=== PATIENT | male | born 1955 | race Caucasian/White ===

== ENCOUNTER 2016-09-27 12:20 | Emergency (ER) | payer MEDICAID ==
[~2016-09-27] VITALS: Ht 170.2 cm; Wt 105.5 kg
[2016-09-27 12:22] VITALS: BP 180/79; PULSE 66; RESP 14; TEMP 98.1; O2SAT 97
--- NOTE | 2016-09-27 12:42 | PD ---
HPI Chief Complaint: Medication Refill Request Time Seen by Provider: 12:41 Travel History International Travel<30 days: No Contact w/Intl Traveler<30days: No Traveled to known affect area: No History of Present Illness HPI 61-year-old male presented to the emergency department with history of type 2 diabetes treated with insulin, hypertension, history of atrial fibrillation, hypertension and CHF. Patient recently moved here from [place] and has been unable to establish with a local primary care physician, and has having difficulty getting his medications. Patient is also due for a PT/INR for his warfarin dosing. He has no acute medical problems this time. No known drug allergies. PFSH Past Medical History Hx Anticoagulant Therapy: Yes Heart Rhythm Problems: Yes Cardiovascular Problems: Yes Congestive Heart Failure: Yes Diabetes: Yes Social History Alcohol Use: No Tobacco Use: No Substance Use: No Allergies-Medications (Allergen,Severity, Reaction): Coded Allergies: No Known Allergies (Unverified , 09/27/16) Reported Meds & Prescriptions Reported Meds & Active Scripts Active Losartan (Losartan Potassium) 25 Mg Tab 25 Mg PO DAILY Furosemide 40 Mg Tab 40 Mg PO BID Sotalol (Sotalol HCl) 80 Mg Tab 80 Mg PO BID Crestor (Rosuvastatin Calcium) 20 Mg Tab 20 Mg PO DAILY Warfarin 1 Mg Tab 2 Mg PO DAILY Warfarin 5 Mg Tab 5 Mg PO DAILY Novolog Mix 70-30 Inj (Insulin Aspart Prota 70%/Aspart 30%) 1,000 Unit/10 Ml Vial 15 Units SQ BID 30 Days Levemir Inj (Insulin Detemir) 1,000 unit/ 10 ML Vial 30 Units SQ BID 30 Days Do not mix with any other Insulin. Review of Systems General / Constitutional: No: Fever Eyes: No: Visual changes HENT: No: Headaches Cardiovascular: No: Chest Pain or Discomfort Respiratory: No: Shortness of Breath Gastrointestinal: No: Abdominal Pain Genitourinary: No: Dysuria Musculoskeletal: No: Pain Skin: No Rash Neurologic: No: Weakness Psychiatric: No: Depression Endocrine: No: Polydipsia Hematologic/Lymphatic: No: Easy Bruising Physical Exam Narrative GENERAL: Patient is in no acute distress SKIN: Warm and dry. Normal color. Normal turgor. HEAD: Atraumatic. Normocephalic. EYES: Pupils equal and round. No scleral icterus. No injection or drainage. ENT: No nasal bleeding or discharge. Mucous membranes pink and moist. Pharynx is clear. Airway is patent. NECK: Trachea midline. No JVD. CARDIOVASCULAR: Irregular rate and rhythm. RESPIRATORY: No accessory muscle use. Clear to auscultation. Breath sounds equal bilaterally. GASTROINTESTINAL: Abdomen soft, non-tender, nondistended. Hepatic and splenic margins not palpable. MUSCULOSKELETAL: Extremities without clubbing, cyanosis, or edema. No obvious deformities. NEUROLOGICAL: Awake and alert. No obvious cranial nerve deficits. Motor grossly within normal limits. Five out of 5 muscle strength in the arms and legs. Normal speech. PSYCHIATRIC: Appropriate mood and affect; insight and judgment normal. Data Data Last Documented VS Vital Signs Date Time Temp Pulse Resp B/P Pulse Ox O2 Delivery O2 Flow Rate FiO2 09/27/16 12:22 98.1 66 14 180/79 97 Room Air Orders Prothrombin Time / Inr (Pt) (09/27/16 12:40) Labs Laboratory Tests Test 09/27/16 13:05 Prothrombin Time 36.8 SEC Prothromb Time International 3.2 RATIO Ratio MDM Medical Decision Making Medical Screen Exam Complete: Yes Emergency Medical Condition: Yes Differential Diagnosis H or fibrillation. Anticoagulant therapy. CHF. Type 2 diabetes requiring insulin. Hypertension. Narrative Course Patient is medically stable at time of exam. All meds are refilled 1 month with one refill each. Patient is to establish with local primary care provider for any further medication refills. INR checked and shows INR of 3.2 No change recommended in Warfarin dose at this time. Diagnosis Primary Impression: Diabetes 1.5, managed as type 1 Additional Impressions: CHF (congestive heart failure) Qualified Code: I50.9 - Chronic congestive heart failure, unspecified congestive heart failure type Anticoagulation goal of INR 2 to 3 Referrals: Primary Care Physician Patient Instructions: General Instructions Med/Other Pt SpecificInfo: Prescription(s) given Scripts Losartan 25 Mg Tab25 Mg PO DAILY #30 TAB Ref 1 Prov:Hernandez Berger MD 09/27/16 Furosemide 40 Mg Tab40 Mg PO BID #60 TAB Ref 0 Prov:Hernandez Berger MD 09/27/16 Sotalol 80 Mg Tab80 Mg PO BID #60 TAB Ref 1 Prov:Hernandez Berger MD 09/27/16 Rosuvastatin (Crestor)20 Mg Tab20 Mg PO DAILY #30 TAB Ref 1 Prov:Hernandez Berger MD 09/27/16 Warfarin 1 Mg Tab2 Mg PO DAILY #60 TAB Ref 1 Prov:Hernandez eBrger MD 09/27/16 Warfarin 5 Mg Tab5 Mg PO DAILY #30 TAB Ref 1 Prov:Hernandez Berger MD 09/27/16 Insulin Aspart Protam-Asp 70-30 Inj (Novolog Mix 70-30 Inj)1,000 Unit/10 Ml Vial15 Units SQ BID 30 Days Ref 1 Prov:Hernandez Berger MD 09/27/16 Insulin Detemir Inj (Levemir Inj)1,000 unit/ 10 ML Vial30 Units SQ BID 30 Days Ref 1 Do not mix with any other Insulin. Prov:Hernandez Berger MD 09/27/16 Disposition: 01 DISCHARGE HOME Condition: Stable Manny Olvera Sep 27, 2016 12:42
[2016-09-27] MEDS ORDERED: FURO40TA PO (12:47)
[2016-09-27] MEDS ORDERED: SOTA80TA PO (12:47)
[2016-09-27] MEDS ORDERED: NOVOLOGMXP SQ (12:47)
[2016-09-27] MEDS ORDERED: LOSA25TA PO (12:47)
[2016-09-27] MEDS ORDERED: WARF-23 PO (12:47)
[2016-09-27] MEDS ORDERED: WARF4TAB52 PO (12:47)
[2016-09-27] MEDS ORDERED: ROSU20 PO (12:47)
[2016-09-27] MEDS ORDERED: LEVEMIR SQ (12:47)
[2016-09-27 13:27] LABS: INTERNATIONAL NORMALIZED RATIO 3.2 RATIO; PROTHROMBIN TIME - PATIENT 36.8 SEC (9.8-11.6)
[2016-09-29] MEDS ORDERED: INSU1INJ5 SQ (11:15)
[2016-09-29] MEDS ORDERED: NOVOINJ2 SQ (11:15)
== END 2016-09-27 14:02 | disposition home or self-care (01) ==
LOC: NEPB 12:20
DX: I48.91 Unspecified atrial fibrillation (principal); I10 Essential (primary) hypertension; E11.9 Type 2 diabetes mellitus without complications; Z79.01 Long term (current) use of anticoagulants; I50.9 Heart failure, unspecified
CPT/HCPCS: 85610; 99282

== ENCOUNTER 2016-11-04 23:51 | Emergency (ER) | payer MEDICAID ==
[~2016-11-04] VITALS: Ht 17.8 cm; Wt 110.0 kg
[~2016-11-04 23:51] MED LIST: FURO40TA PO; INSU1INJ5 SQ; LEVEMIR SQ; LOSA25TA PO; NOVOINJ2 SQ; NOVOLOGMXP SQ; ROSU20 PO; SOTA80TA PO; WARF-23 PO; WARF4TAB52 PO
[2016-11-04 23:53] VITALS: BP 177/79; PULSE 89; RESP 24; TEMP 98.8; O2SAT 98
[2016-11-05 00:18] VITALS: BP 147/67; PULSE 92; RESP 18; O2SAT 97
[2016-11-05] MEDS ORDERED: WARF-60 PO (00:28)
[2016-11-05 00:52] LABS: MEAN CORPUSCULAR HGB CONC 36.2 % (32.0-36.0)
--- NOTE | 2016-11-05 01:01 | PD ---
HPI Chief Complaint: Cold / Flu Symptoms Time Seen by Provider: 00:16 Travel History International Travel<30 days: No Contact w/Intl Traveler<30days: No Traveled to known affect area: No History of Present Illness HPI The patient is a 61 year old male who presents to the [facility] emergency department with a history of shortness of breath and cough that he reports began 3 weeks ago when he swallowed some food wrong. The patient reports that he's had a cough that is productive intermittently of clear sputum. He reports that he's had increased lower extremity edema for the last 3 weeks. The patient reports having a prior history of congestive heart failure, however he has not had this recently. He denies having any calf pain or erythema. He denies having any prior history of DVT or PE. The patient is chronically anticoagulated related to a prior ischemic stroke and atrial fibrillation. The patient reports that he moved to the area 5-6 months ago, however he has not established with a primary care physician. The patient denies having any chest pain. The patient reports that his shortness of breath is worse with lying flat. The patient denies recent fevers neck pain, abdominal pain, vomiting, diarrhea, urinary symptoms, or new neurologic symptoms. PFSH Past Medical History Narrative Medical The patient's past medical history is significant for atrial fibrillation status post ablation 2, history of an ischemic stroke approximate 6 years ago with residual right foot drop and speech problems with mood lability, history of congestive heart failure, history of diabetes mellitus, hypertension, hyperlipidemia, chronic back pain. Hx Anticoagulant Therapy: Yes Heart Rhythm Problems: Yes (HX AFIB) Cardiovascular Problems: Yes Congestive Heart Failure: Yes Cerebrovascular Accident: Yes Diabetes: Yes Patient Takes Glucophage: No Diminished Hearing: No Hypertension: Yes Tetanus Vaccination: < 5 Years Influenza Vaccination: No Past Surgical History Narrative Surgical The patient's past surgical history is significant for an appendectomy, cardiac ablation 2, cardiac catheterization with 5 stents placed previously. Appendectomy: Yes Coronary Artery Bypass Graft: Yes (STENTS X5) Other Surgery: Yes (A-FIB ABLATION) Social History Alcohol Use: No Tobacco Use: No Substance Use: No Allergies-Medications (Allergen,Severity, Reaction): Coded Allergies: No Known Allergies (Unverified , 11/05/16) Reported Meds & Prescriptions Reported Meds & Active Scripts Active Benzonatate 200 Mg Cap 200 Mg PO TID PRN Augmentin (Amoxicillin-Clavulanate) 875-125 mg Tab 875 Mg PO BID 10 Days not for use in CrCl <30 ml/min. Losartan (Losartan Potassium) 25 Mg Tab 25 Mg PO DAILY Furosemide 40 Mg Tab 40 Mg PO BID Sotalol (Sotalol HCl) 80 Mg Tab 80 Mg PO BID Crestor (Rosuvastatin Calcium) 20 Mg Tab 20 Mg PO DAILY Novolog Mix 70-30 Inj (Insulin Aspart Prota 70%/Aspart 30%) 1,000 Unit/10 Ml Vial 15 Units SQ BID 30 Days Levemir Inj (Insulin Detemir) 1,000 unit/ 10 ML Vial 30 Units SQ BID 30 Days Do not mix with any other Insulin. Reported Warfarin 6 Mg Tab 6 Mg PO DAILY Review of Systems General / Constitutional: No: Fever Eyes: No: Visual changes HENT: No: Headaches, Rhinorrhea, Congestion Cardiovascular: Positive: Dyspnea on exertion, Edema, No: Chest Pain or Discomfort Respiratory: Positive: Cough, Shortness of Breath, Orthopnea Gastrointestinal: No: Nausea, Vomiting, Diarrhea, Abdominal Pain Genitourinary: No: Dysuria Musculoskeletal: No: Pain Skin: No Rash Neurologic: No: Weakness Psychiatric: No: Depression Endocrine: No: Polydipsia Hematologic/Lymphatic: No: Easy Bruising Physical Exam Narrative General: The patient is a well-developed well-nourished male in no acute distress. Head and Neck exam: Head is normocephalic atraumatic. Eyes: EOMI, pupils are equal round and reactive to light. Nose: Midline septum with pink mucous membranes Mouth: Dentition unremarkable. Moist mucus membranes. Posterior oropharynx is not erythematous. No tonsillar hypertrophy. Uvula midline. Airway patent. Neck: No palpable lymphadenopathy. No nuchal rigidity. No thyromegaly. Cardiovascular: Regular rate and rhythm without murmurs, gallops, or rubs. Lungs: The patient has crackles audible in bilateral lung bases with a recurrent cough that is dry in character on examination. No conversational dyspnea. No wheezes are audible, no rhonchi audible. No paroxysmal abdominal breathing. No tripoding. Abdomen: Soft, without tenderness to palpation in all 4 quadrants of the abdomen. No guarding, rebound, or rigidity. Normal bowel sounds are audible. No tenderness on palpation of McBurney's point. Extremities: No clubbing or cyanosis. The patient has trace to 1+ pitting edema bilateral lower extremities. 2+ pulses in all 4 extremities. No calf tenderness on palpation. Back: No spinous process tenderness to palpation. No costovertebral angle tenderness to palpation. Neurologic Exam: Grossly nonfocal. Skin Exam: No rash noted. Intact skin that is warm and dry. Data Data Last Documented VS Vital Signs Date Time Temp Pulse Resp B/P Pulse Ox O2 Delivery O2 Flow Rate FiO2 11/05/16 04:10 98.5 78 18 163/72 97 11/05/16 01:26 Room Air Orders Chest, Single Ap (11/05/16 00:43) Complete Blood Count With Diff (11/05/16 00:48) Comprehensive Metabolic Panel (11/05/16 00:48) Creatine Kinase (Cpk) (11/05/16 00:48) Ckmb (Isoenzyme) Profile (11/05/16 00:48) B-Type Natriuretic Peptide (11/05/16 00:48) Prothrombin Time / Inr (Pt) (11/05/16 00:48) Act Partial Throm Time (Ptt) (11/05/16 00:48) Blood Culture (11/05/16 00:48) C-Reactive Protein (Crp) (11/05/16 00:48) Lipase (11/05/16 00:48) Urinalysis - C+S If Indicated (11/05/16 00:48) Magnesium (Mg) (11/05/16 00:48) Iv Access Insert/Monitor (11/05/16 00:48) Ecg Monitoring (11/05/16 00:48) Oximetry (11/05/16 00:48) CKMB (11/05/16 01:20) CKMB% (11/05/16 01:20) Electrocardiogram (11/05/16 ) Labs Laboratory Tests Test 11/05/16 01:20 White Blood Count 7.5 TH/MM3 Red Blood Count 3.26 MIL/MM3 Hemoglobin 10.7 GM/DL Hematocrit 29.4 % Mean Corpuscular Volume 90.1 FL Mean Corpuscular Hemoglobin 32.6 PG Mean Corpuscular Hemoglobin 36.2 % Concent Red Cell Distribution Width 14.1 % Platelet Count 167 TH/MM3 Mean Platelet Volume 9.8 FL Neutrophils (%) (Auto) 62.2 % Lymphocytes (%) (Auto) 22.3 % Monocytes (%) (Auto) 12.3 % Eosinophils (%) (Auto) 1.7 % Basophils (%) (Auto) 1.5 % Neutrophils # (Auto) 4.6 TH/MM3 Lymphocytes # (Auto) 1.7 TH/MM3 Monocytes # (Auto) 0.9 TH/MM3 Eosinophils # (Auto) 0.1 TH/MM3 Basophils # (Auto) 0.1 TH/MM3 CBC Comment AUTO DIFF Differential Comment AUTO DIFF CONFIRMED Platelet Estimate NORMAL Platelet Morphology Comment NORMAL Ovalocytes 2+ Prothrombin Time 19.5 SEC Prothromb Time International 1.7 RATIO Ratio Activated Partial 31.1 SEC Thromboplast Time Urine Color LIGHT-YELLOW Urine Turbidity CLEAR Urine pH 5.5 Urine Specific Burns 1.010 Urine Protein 100 mg/dL Urine Glucose (UA) 300 mg/dL Urine Ketones NEG mg/dL Urine Occult Blood TRACE Urine Nitrite NEG Urine Bilirubin NEG Urine Urobilinogen LESS THAN 2.0 MG/DL Urine Leukocyte Esterase NEG Urine RBC 2 /hpf Urine WBC LESS THAN 1 /hpf Urine Bacteria RARE /hpf Urine Hyaline Casts 4 /lpf Urine Mucus FEW /lpf Microscopic Urinalysis Comment CULT NOT INDICATED Sodium Level 139 MEQ/L Potassium Level 4.2 MEQ/L Chloride Level 103 MEQ/L Carbon Dioxide Level 24.7 MEQ/L Anion Gap 11 MEQ/L Blood Urea Nitrogen 40 MG/DL Creatinine 1.93 MG/DL Estimat Glomerular Filtration 35 ML/MIN Rate Random Glucose 256 MG/DL Calcium Level 8.8 MG/DL Magnesium Level 1.9 MG/DL Total Bilirubin 0.6 MG/DL Aspartate Amino Transf 21 U/L (AST/SGOT) Alanine Aminotransferase 33 U/L (ALT/SGPT) Alkaline Phosphatase 102 U/L Total Creatine Kinase 173 U/L Creatine Kinase MB 3.3 NG/ML C-Reactive Protein 1.43 MG/DL B-Type Natriuretic Peptide 330 PG/ML Total Protein 7.2 GM/DL Albumin 3.4 GM/DL Lipase 200 U/L [facility] Medical Decision Making Medical Screen Exam Complete: Yes Emergency Medical Condition: Yes Medical Record Reviewed: Yes Interpretation(s) Last Impressions Chest X-Ray 11/05/16 0043 Signed Impressions: Service Date/Time: Saturday, November 05, 2016 00:57 - CONCLUSION: Normal examination. Deshaun Heller MD Differential Diagnosis Bronchitis, versus pneumonia, versus aspiration, versus congestive heart failure exacerbation, versus acute coronary syndrome Narrative Course During the course of the patients emergency department visit, the patients history, examination, and differential diagnosis were reviewed with the patient. The patient had IV access obtained and blood work sent for analysis. The patient was placed on a lunchroom monitor with oximetry and blood pressure monitoring. The patient had an EKG done that shows a sinus rhythm with a heart rate of 75, right bundle branch block is noted, no other acute ST segment changes are noted. The patients laboratory studies were reviewed and remarkable for white count of 7.5, mild anemia noted, CPK and troponin I are unremarkable. BNP is in the 300s, however he does have a history of congestive heart failure and is on Lasix which he is taking daily. The patient's chest x-ray shows no evidence of pulmonary edema or fluid overload. CMP is remarkable for mild renal insufficiency. I suspect that the patient's persistent cough is related to bronchitis. The patient will be discharged home with a prescription for antibiotic and benzonatate to be used as needed for cough suppression. The patient was given the name of the outpatient referral doctor for follow-up as he has multiple chronic medical conditions and is in need of a local doctor. The patient is resting comfortably and feels better, is alert and in no distress. The patients results and examination findings were discussed with the patient. The repeat examination is unremarkable and benign. The history, exam, diagnostic testing, and current condition do not suggest any significant pathology to warrant further testing, continued ED treatment, admission, or surgical evaluation at this point. The vital signs have been stable. The patient does not have uncontrollable pain, intractable vomiting, or other significant symptoms. The patient's condition is stable and appropriate for discharge. The patient will pursue further outpatient evaluation with a primary care physician or other designated or consulting physician as indicated in the discharge instructions. The patient expressed understanding and was agreeable with this plan. Diagnosis Primary Impression: Cough Additional Impression: Bronchitis Referrals: Wily Travis MD 2 days Patient Instructions: Acute Bronchitis (ED), Chronic Cough (ED), General Instructions Scripts Benzonatate 200 Mg [id number] Mg PO TID PRN (COUGH) #15 CAP Ref 0 Prov:Karo Washington MD 11/05/16 Amoxicillin-Clavulanate (Augmentin)875-125 mg [id number] Mg PO BID 10 Days Ref 0 not for use in CrCl <30 ml/min. Prov:Karo Washington MD 11/05/16 Disposition: 01 DISCHARGE HOME Condition: Stable Karo Washington MD Nov 05, 2016 01:01
--- NOTE | 2016-11-05 01:13 | RADRPT ---
EXAM DATE/TIME: 11/05/2016 00:57 [facility] COMPARISON: No previous studies available for comparison. INDICATIONS : Fever, cough. MEDICAL HISTORY : Hypertension. Congestive heart failure. SURGICAL HISTORY : Coronary artery stent. ENCOUNTER: Initial ACUITY: 1 day PAIN SCORE: 0/10 LOCATION: Bilateral chest FINDINGS: A single view of the chest demonstrates the lungs to be symmetrically aerated without evidence of mas s, infiltrate or effusion. The cardiomediastinal contours are unremarkable. Osseous structures are intact. CONCLUSION: Normal examination. Deshaun Heller MD on November 05, 2016 at 1:12 Board Certified Radiologist. This report was verified electronically.
[2016-11-05 01:26] VITALS: RESP 20; O2SAT 96
[2016-11-05 01:35] LABS: AUTOMATED NEUTROPHIL # 4.6 TH/MM3 (1.8-7.7); BASOPHIL # 0.1 TH/MM3 (0-0.2); BASOPHIL % 1.5 % (0.0-2.0); EOSINOPHIL # 0.1 TH/MM3 (0-0.4); EOSINOPHIL % 1.7 % (0.0-4.0); HEMATOCRIT 29.4 % (39.0-51.0); LYMPH % 22.3 % (9.0-44.0); LYMPHOCYTE # 1.7 TH/MM3 (1.0-4.8); MEAN CELL VOLUME 90.1 FL (80.0-100.0); MEAN CORPUSCULAR HEMOGLOBIN 32.6 PG (27.0-34.0); MONO % 12.3 % (0.0-8.0); NEUT % 62.2 % (16.0-70.0); PLATELET COUNT 167 TH/MM3 (150-450); RED BLOOD COUNT 3.26 MIL/MM3 (4.50-5.90); RED CELL DISTRIBUTION WIDTH 14.1 % (11.6-17.2); WHITE BLOOD COUNT 7.5 TH/MM3 (4.0-11.0)
[2016-11-05 01:43] LABS: HEMO FLAGS AUTO DIFF
[2016-11-05 01:45] LABS: ALT (GPT) 33 U/L (12-78); ANION GAP 11 MEQ/L (5-15); AST (GOT) 21 U/L (15-37); BICARBONATE 24.7 MEQ/L (21.0-32.0); BLOOD UREA NITROGEN 40 MG/DL (7-18); CHLORIDE 103 MEQ/L (98-107); GLOMERULAR FILTRATION RATE 35 ML/MIN (>89); MAGNESIUM 1.9 MG/DL (1.5-2.5); POTASSIUM 4.2 MEQ/L (3.5-5.1); SODIUM (NA) 139 MEQ/L (136-145)
[2016-11-05 01:48] LABS: ALKALINE PHOSPHATASE 102 U/L (45-117); CREATINE KINASE 173 U/L (39-308); TOTAL BILIRUBIN ADULT 0.6 MG/DL (0.2-1.0)
[2016-11-05 01:53] LABS: APTT (PATIENT) 31.1 SEC (24.3-30.1); INTERNATIONAL NORMALIZED RATIO 1.7 RATIO; PROTHROMBIN TIME - PATIENT 19.5 SEC (9.8-11.6)
[2016-11-05 01:58] LABS: BACTERIA, URINE RARE /hpf; BLOOD, URINE TRACE (NEG); COMMENT (UR) CULT NOT INDICATED; CULTURE IF INDICATED CULT NOT INDICATED; GLUCOSE,URINE 300 mg/dL (NEG); HYALINE CAST, URINE 4 /lpf (RARE); KETONE, URINE NEG (NEG); MUCUS URINE FEW /lpf (OCC); NITRITE,URINE NEG (NEG); PH, URINE 5.5 (5.0-8.5); URINE COLOR LIGHT-YELLOW (YELLW/STRAW)
[2016-11-05 02:12] LABS: CKMB 3.3 NG/ML (0.5-3.6)
[2016-11-05 02:35] LABS: OVALOCYTES 2+ (NORMAL); PLATELET ESTIMATE SMEAR NORMAL (NORMAL); PLATELET MORPHOLOGY NORMAL (NORMAL); SCAN/DIFF AUTO DIFF CONFIRMED
[2016-11-05] MEDS ORDERED: AUGM875T PO (03:18)
[2016-11-05] MEDS ORDERED: BENZ1CAP34 PO (03:18)
[2016-11-05 04:10] VITALS: BP 163/72; TEMP 98.5
--- NOTE | 2016-11-05 14:26 | EKG ---
Date Performed: 11/05/2016 Time Performed: 03:56:15 PTAGE: 61 years EKG: Sinus rhythm WITH FIRST DEGREE AV BLOCK RIGHT BUNDLE BRANCH BLOCK ABNORMAL ECG NO PREVIOUS TRACING DOCTOR: Iron Craig Interpretating Date/Time 11/05/2016 14:25:27
== END 2016-11-05 04:12 | disposition home or self-care (01) ==
LOC: NEPE 23:51
DX: R05 Cough (principal); J40 Bronchitis, not specified as acute or chronic; I50.9 Heart failure, unspecified; I48.91 Unspecified atrial fibrillation; E11.9 Type 2 diabetes mellitus without complications; I10 Essential (primary) hypertension; Z79.01 Long term (current) use of anticoagulants
CPT/HCPCS: 71010; 80053; 81001; 82550; 82552; 83690; 83735; 83880; 85025; 85610; 85730; 86140; 87040; 93005; 99285

== ENCOUNTER 2016-11-11 12:04 | Emergency (ER) | payer MEDICAID, MEDICARE ==
[~2016-11-11] VITALS: Ht 170.2 cm; Wt 106.0 kg
[~2016-11-11 12:04] MED LIST changes: +AUGM875T PO; +BENZ1CAP34 PO; -INSU1INJ5 SQ; -NOVOINJ2 SQ; -WARF-23 PO; +WARF-60 PO; -WARF4TAB52 PO
[2016-11-11 12:05] VITALS: BP 163/75; PULSE 70; RESP 28; TEMP 98.1; O2SAT 90
[2016-11-11 12:17] VITALS: BP 138/63; PULSE 72; RESP 18; O2SAT 96
[2016-11-11] MEDS ORDERED: SODIUM CHLORIDE 0.9% FLUSH 10 ML FLUSH IVF PRN (12:45)
[2016-11-11] MEDS ORDERED: RESP: ALBUTEROL 2.5 MG/IPRATROPIUM 0.5 MG NEB (SCH) INH ONE (12:45)
[2016-11-11] MEDS ORDERED: methylPREDNISolone SOD SUCC 125 MG/2 ML VIAL IVP ONE (12:45)
--- NOTE | 2016-11-11 13:03 | RADRPT ---
EXAM DATE/TIME: 11/11/2016 13:48 [facility] COMPARISON: CHEST SINGLE AP, November 05, 2016, 0:57. INDICATIONS : Shortness of breath. Cough. MEDICAL HISTORY : Hypertension. Congestive heart failure. SURGICAL HISTORY : Coronary artery stent. ENCOUNTER: Initial ACUITY: 1 day PAIN SCORE: 0/10 LOCATION: Bilateral chest FINDINGS: PA lateral views of the chest demonstrate mild cardiac enlargement. There is cephalization of pulmona ry vasculature with adjacent indistinctness consistent with congestive heart failure and pulmonary ed zackery. There is a single focal nodular density overlying the right lower lobe consistent with a calcifi ed granuloma. CONCLUSION: Exam consistent with worsening congestive heart failure and pulmonary edema. Shruti Stewart MD on November 11, 2016 at 13:00 Board Certified Radiologist. This report was verified electronically.
--- NOTE | 2016-11-11 13:10 | PD ---
HPI Chief Complaint: Cold / Flu Symptoms Time Seen by Provider: 12:25 Travel History International Travel<30 days: No Contact w/Intl Traveler<30days: No Traveled to known affect area: No History of Present Illness HPI 61-year-old male with a history of hypertension, hyperlipidemia, diabetes mellitus, who presents today with complaints of cold and flu symptoms 3 weeks. The patient states he started with a cough 3 weeks ago and has been persistent since then. He states he feels warm however denies any fevers. There is no chills. The patient denies any production in his cough. The patient has had congestive heart failure in the past. He also has a history of A. fib and is anticoagulated on Coumadin. The patient denies any chest pain, chest pressure. PFSH Past Medical History Hx Anticoagulant Therapy: Yes (COUMADIN) Heart Rhythm Problems: Yes (HX AFIB) Cardiovascular Problems: Yes (CHF) Congestive Heart Failure: Yes Cerebrovascular Accident: Yes Diabetes: Yes Diminished Hearing: No Hypertension: Yes Past Surgical History Appendectomy: Yes Coronary Artery Bypass Graft: Yes (STENTS X5) Other Surgery: Yes (A-FIB ABLATION) Social History Alcohol Use: No Tobacco Use: No Substance Use: No Allergies-Medications (Allergen,Severity, Reaction): Coded Allergies: No Known Allergies (Unverified , 11/11/16) Reported Meds & Prescriptions Reported Meds & Active Scripts Active Ventolin Hfa 18 GM Inh (Albuterol Sulfate) 90 Mcg/Act Aer 1 Puff INH Q6HR PRN Guaifenesin AC Liq (Guaifenesin-Codeine Liq) 100-10 Mg/5 Ml Syrp 5 Ml PO Q6H PRN Prednisone 10 Mg Tab 10 Mg PO DAILY Cefuroxime (Cefuroxime Axetil) 500 Mg Tab 500 Mg PO BID Benzonatate 200 Mg Cap 200 Mg PO TID PRN Augmentin (Amoxicillin-Clavulanate) 875-125 mg Tab 875 Mg PO BID 10 Days not for use in CrCl <30 ml/min. Losartan (Losartan Potassium) 25 Mg Tab 25 Mg PO DAILY Furosemide 40 Mg Tab 40 Mg PO BID Sotalol (Sotalol HCl) 80 Mg Tab 80 Mg PO BID Crestor (Rosuvastatin Calcium) 20 Mg Tab 20 Mg PO DAILY Novolog Mix 70-30 Inj (Insulin Aspart Prota 70%/Aspart 30%) 1,000 Unit/10 Ml Vial 15 Units SQ BID 30 Days Levemir Inj (Insulin Detemir) 1,000 unit/ 10 ML Vial 30 Units SQ BID 30 Days Do not mix with any other Insulin. Reported Warfarin 6 Mg Tab 6 Mg PO DAILY Review of Systems Except as stated in HPI: all other systems reviewed are Neg General / Constitutional: No: Fever (.warm but no fever), Chills HENT: Positive: Headaches, No: Lightheadedness (headache earlier, none now) Cardiovascular: No: Chest Pain or Discomfort, Palpitations Respiratory: Positive: Cough (nonproductive), Shortness of Breath, Wheezing Gastrointestinal: No: Nausea, Vomiting, Abdominal Pain Musculoskeletal: Positive: Weakness (generalized), Edema, No: Pain Neurologic: Positive: Weakness (and rule out), Headache (earlier, none now) Physical Exam Narrative GENERAL: Well-developed well-nourished gentleman who was coughing when I entered the room. He appears to be in no acute respiratory distress but does have episodes of coughing spells. SKIN: Warm and dry. HEAD: Atraumatic. Normocephalic. EYES: No scleral icterus. No injection or drainage. ENT: No nasal bleeding or discharge. Mucous membranes pink and moist. NECK: Trachea midline. Supple CARDIOVASCULAR: Rate in the 80s. Irregularly irregular. RESPIRATORY: Decreased breath sounds at the bases with coarse rhonchi in the upper airways bilaterally. GASTROINTESTINAL: Abdomen soft, non-tender, nondistended. MUSCULOSKELETAL: No obvious deformities. No clubbing. No cyanosis. Trace bilateral pretibial edema NEUROLOGICAL: Awake and alert. No obvious cranial nerve deficits. Motor grossly within normal limits. Normal speech. Data Data Last Documented VS Vital Signs Date Time Temp Pulse Resp B/P Pulse Ox O2 Delivery O2 Flow Rate FiO2 11/11/16 17:02 63 16 134/62 96 Room Air 11/11/16 12:05 98.1 Orders Complete Blood Count With Diff (11/11/16 12:31) Basic Metabolic Panel (Bmp) (11/11/16 12:31) Ckmb (Isoenzyme) Profile (11/11/16 12:31) Troponin I (11/11/16 12:31) Iv Access Insert/Monitor (11/11/16 12:31) Electrocardiogram (11/11/16 12:31) Ecg Monitoring (11/11/16 12:31) Oximetry (11/11/16 12:31) Oxygen Administration (11/11/16 12:31) Chest, Pa & Lat (11/11/16 12:31) Sodium Chloride 0.9% Flush (Ns Flush) (11/11/16 12:45) Methylprednisolone So Succ Inj (Solumedr (11/11/16 12:45) Albuterol-Ipratropium Neb (Duoneb Neb) (11/11/16 12:45) Albuterol Neb (Albuterol Neb) (11/11/16 12:45) Vascular Access Team Consult PRN (11/11/16 13:44) Vascular Poc Ultrasound (11/11/16 ) B-Type Natriuretic Peptide (11/11/16 14:49) Prothrombin Time / Inr (Pt) (11/11/16 14:49) Act Partial Throm Time (Ptt) (11/11/16 14:49) Furosemide Inj (Lasix Inj) (11/11/16 15:15) CKMB (11/11/16 14:50) CKMB% (11/11/16 14:50) Labs Laboratory Tests Test 11/11/16 11/11/16 14:03 14:50 Prothrombin Time 22.1 SEC Prothromb Time International 1.9 RATIO Ratio Activated Partial 36.8 SEC Thromboplast Time White Blood Count 10.3 TH/MM3 Red Blood Count 3.21 MIL/MM3 Hemoglobin 10.2 GM/DL Hematocrit 29.3 % Mean Corpuscular Volume 91.3 FL Mean Corpuscular Hemoglobin 31.9 PG Mean Corpuscular Hemoglobin 35.0 % Concent Red Cell Distribution Width 15.6 % Platelet Count 144 TH/MM3 Mean Platelet Volume 9.8 FL Neutrophils (%) (Auto) 52.4 % Lymphocytes (%) (Auto) 39.6 % Monocytes (%) (Auto) 6.2 % Eosinophils (%) (Auto) 0.7 % Basophils (%) (Auto) 1.1 % Neutrophils # (Auto) 5.4 TH/MM3 Lymphocytes # (Auto) 4.1 TH/MM3 Monocytes # (Auto) 0.6 TH/MM3 Eosinophils # (Auto) 0.1 TH/MM3 Basophils # (Auto) 0.1 TH/MM3 CBC Comment AUTO DIFF Differential Comment AUTO DIFF CONFIRMED Platelet Estimate LOW Platelet Morphology Comment NORMAL Ovalocytes 2+ Sodium Level 138 MEQ/L Potassium Level 3.9 MEQ/L Chloride Level 104 MEQ/L Carbon Dioxide Level 28.9 MEQ/L Anion Gap 5 MEQ/L Blood Urea Nitrogen 35 MG/DL Creatinine 1.95 MG/DL Estimat Glomerular Filtration 35 ML/MIN Rate Random Glucose 150 MG/DL Calcium Level 8.6 MG/DL Total Creatine Kinase 136 U/L Creatine Kinase MB 1.7 NG/ML Troponin I 0.04 NG/ML B-Type Natriuretic Peptide 323 PG/ML MDM Medical Decision Making Medical Screen Exam Complete: Yes Emergency Medical Condition: Yes Differential Diagnosis Bronchitis versus congestive heart failure versus pneumonia Narrative Course 61-year-old male history of CHF, diabetes mellitus, hypertension, presents today with a cough and congestion 3 weeks. The patient has no fever. The patient denies any productive cough. Chest x-ray showed mild CHF. He was given Lasix 40 mg I V times one dose. Patient has renal insufficiency with a creatinine of 1.95. This is compared to his baseline which is the same. His INR is 1.9. I encouraged him to take one half extra dose of warfarin tomorrow. He'll be given a prescription for cefuroxime 500 mg twice daily 7 days for bronchitis. He also be given prednisone 10 mg daily 5 days. He is a diabetic and that is why were putting him on a low dose. He'll have a prescription for a new albuterol nebulizer. Also guaifenesin before meals for his cough. Diagnosis Primary Impression: Bronchitis Additional Impressions: CHF (congestive heart failure) Diabetes 1.5, managed as type 1 Cough Additional Instructions: Take one half extra tablet of warfarin tomorrow. Return of worsening shortness breath, or any other reason. Med/Other Pt SpecificInfo: Prescription(s) given Scripts Albuterol 18 GM Inh (Ventolin Hfa 18 GM Inh)90 Mcg/Act Aer1 Puff INH Q6HR PRN ( SHORTNESS OF BREATH) #1 INHALER Ref 0 Prov:Hernandez Berger MD 11/11/16 Guaifenesin-Codeine Liq (Guaifenesin AC Liq)100-10 Mg/5 Ml Syrp5 Ml PO Q6H PRN ( COUGH) #1 BOTTLE Ref 0 Prov:Hernandez Berger MD 11/11/16 Prednisone 10 Mg Tab10 Mg PO DAILY #5 TAB Ref 0 Prov:Hernandez Berger MD 11/11/16 Cefuroxime 500 Mg [id number] Mg PO BID #14 TAB Ref 0 Prov:Hernandez Berger MD 11/11/16 Disposition: 01 DISCHARGE HOME Condition: Stable Hernandez Berger MD Nov 11, 2016 13:10
[2016-11-11] MEDS: RESP: ALBUTEROL 2.5 MG/3 ML NEB (SCH) INH (13:36)
[2016-11-11 13:42] VITALS: BP 142/62; PULSE 64; RESP 18; O2SAT 96
[2016-11-11 15:12] VITALS: BP 142/64; PULSE 65; RESP 20; O2SAT 98
[2016-11-11 15:14] LABS: AUTOMATED NEUTROPHIL # 5.4 TH/MM3 (1.8-7.7); BASOPHIL # 0.1 TH/MM3 (0-0.2); BASOPHIL % 1.1 % (0.0-2.0); EOSINOPHIL # 0.1 TH/MM3 (0-0.4); EOSINOPHIL % 0.7 % (0.0-4.0); HEMATOCRIT 29.3 % (39.0-51.0); LYMPH % 39.6 % (9.0-44.0); LYMPHOCYTE # 4.1 TH/MM3 (1.0-4.8); MEAN CELL VOLUME 91.3 FL (80.0-100.0); MEAN CORPUSCULAR HEMOGLOBIN 31.9 PG (27.0-34.0); MONO % 6.2 % (0.0-8.0); NEUT % 52.4 % (16.0-70.0); PLATELET COUNT 144 TH/MM3 (150-450); RED BLOOD COUNT 3.21 MIL/MM3 (4.50-5.90); RED CELL DISTRIBUTION WIDTH 15.6 % (11.6-17.2); WHITE BLOOD COUNT 10.3 TH/MM3 (4.0-11.0)
[2016-11-11] MEDS ORDERED: FUROSEMIDE 40 MG/4 ML VIAL IV PUSH ONE (15:15)
[2016-11-11 15:16] LABS: HEMO FLAGS AUTO DIFF
[2016-11-11 15:24] LABS: APTT (PATIENT) 36.8 SEC (24.3-30.1); INTERNATIONAL NORMALIZED RATIO 1.9 RATIO; PROTHROMBIN TIME - PATIENT 22.1 SEC (9.8-11.6)
[2016-11-11 15:25] LABS: ANION GAP 5 MEQ/L (5-15); BICARBONATE 28.9 MEQ/L (21.0-32.0); BLOOD UREA NITROGEN 35 MG/DL (7-18); CHLORIDE 104 MEQ/L (98-107); GLOMERULAR FILTRATION RATE 35 ML/MIN (>89); POTASSIUM 3.9 MEQ/L (3.5-5.1); SODIUM (NA) 138 MEQ/L (136-145)
[2016-11-11 15:29] LABS: CREATINE KINASE 136 U/L (39-308)
[2016-11-11 15:42] LABS: CKMB 1.7 NG/ML (0.5-3.6)
[2016-11-11 15:50] LABS: OVALOCYTES 2+ (NORMAL)
[2016-11-11 15:51] LABS: PLATELET ESTIMATE SMEAR LOW (NORMAL); PLATELET MORPHOLOGY NORMAL (NORMAL); SCAN/DIFF AUTO DIFF CONFIRMED
[2016-11-11 17:02] VITALS: BP 134/62; PULSE 63; RESP 16; O2SAT 96
[2016-11-11] MEDS ORDERED: GUAISYP4 PO (17:36)
[2016-11-11] MEDS ORDERED: CEFU1TAB20 PO (17:36)
[2016-11-11] MEDS ORDERED: PRED10 PO (17:36)
[2016-11-11] MEDS ORDERED: VENTAER INH (17:43)
[2016-11-11 17:52] VITALS: BP 142/76
--- NOTE | 2016-11-13 12:48 | EKG ---
Date Performed: 11/11/2016 Time Performed: 13:47:00 PTAGE: 61 years EKG: Sinus rhythm RIGHT BUNDLE BRANCH BLOCK ABNORMAL ECG PREVIOUS TRACING : 11/05/2016 03.56 Compared to prior tracing no significant change DOCTOR: Raúl Holman Interpretating Date/Time 11/13/2016 12:47:32
== END 2016-11-11 18:19 | disposition home or self-care (01) ==
LOC: NEPE 12:04
DX: J40 Bronchitis, not specified as acute or chronic (principal); I50.9 Heart failure, unspecified; E10.8 Type 1 diabetes mellitus with unspecified complications; R94.31 Abnormal electrocardiogram [ECG] [EKG]; I48.91 Unspecified atrial fibrillation; I10 Essential (primary) hypertension; Z79.4 Long term (current) use of insulin; Z95.1 Presence of aortocoronary bypass graft; Z79.01 Long term (current) use of anticoagulants
CPT/HCPCS: 71020; 80048; 82550; 82552; 83880; 84484; 85025; 85610; 85730; 93005; 94640; 94664; 96374; 96375; 99284; J1940; J2930; J7613

== ENCOUNTER 2016-11-18 11:48 | Observation (INO) | payer MEDICAID, MEDICARE ==
[~2016-11-18] VITALS: Ht 170.2 cm; Wt 107.0 kg
[2016-11-18] VITALS (7 sets, daily range): BP systolic 144–159; BP diastolic 63–78; PULSE 68–82; RESP 17–22; TEMP 97.9–100; O2SAT 95–99
[~2016-11-18 11:48] MED LIST changes: +CEFU1TAB20 PO; +GUAISYP4 PO; +PRED10 PO; +VENTAER INH
[2016-11-18] MEDS ORDERED: SODIUM CHLORIDE 0.9% FLUSH 10 ML FLUSH IVF PRN (12:15)
[2016-11-18] MEDS ORDERED: RESP: ALBUTEROL 2.5 MG/IPRATROPIUM 0.5 MG NEB (SCH) INH ONE (12:15)
--- NOTE | 2016-11-18 12:18 | PD ---
HPI Chief Complaint: Respiratory Symptoms Time Seen by Provider: 12:08 Travel History International Travel<30 days: No Contact w/Intl Traveler<30days: No Traveled to known affect area: No History of Present Illness HPI 61-year-old male presents to the emergency department for evaluation of shortness of breath has been ongoing for 6 weeks. This is the patient's third visit for this issue. Patient was seen on November 04 and November 11. He was diagnosed with bronchitis. He was discharged antibiotic, prednisone, albuterol. He states that his cough is resolving, but he has worsening shortness of breath. He states he can only walk short distances before becoming short of breath. He would eat his breakfast this morning and could not eat due to the shortness of breath. He does state he has some left chest soreness. He reports history of hypertension, atrial fibrillation, GA 3, CHF, CVA, diabetes. Patient denies any abdominal pain. No nausea, vomiting, diarrhea. He denies any fevers or chills. Patient states this is the worst he has ever been when it comes to his shortness of breath. The patient states he moved from [place] in April. He does not have physicians in [place]. 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 However, he has not seen any since moving to [place]. PFSH Past Medical History Hx Anticoagulant Therapy: Yes Heart Rhythm Problems: Yes (HX AFIB) Cardiovascular Problems: Yes Congestive Heart Failure: Yes Cerebrovascular Accident: Yes Diabetes: Yes Patient Takes Glucophage: No Diminished Hearing: No Hypertension: Yes Respiratory: Yes Myocardial Infarction: Yes (2008 ) Past Surgical History Appendectomy: Yes Coronary Artery Bypass Graft: Yes (STENTS X5) Other Surgery: Yes (A-FIB ABLATION) Social History Alcohol Use: No Tobacco Use: No Substance Use: No Allergies-Medications (Allergen,Severity, Reaction): Coded Allergies: No Known Allergies (Unverified , 11/18/16) Reported Meds & Prescriptions Reported Meds & Active Scripts Active Ventolin Hfa 18 GM Inh (Albuterol Sulfate) 90 Mcg/Act Aer 1 Puff INH Q6HR PRN Guaifenesin AC Liq (Guaifenesin-Codeine Liq) 100-10 Mg/5 Ml Syrp 5 Ml PO Q6H PRN Prednisone 10 Mg Tab 10 Mg PO DAILY Cefuroxime (Cefuroxime Axetil) 500 Mg Tab 500 Mg PO BID Benzonatate 200 Mg Cap 200 Mg PO TID PRN Augmentin (Amoxicillin-Clavulanate) 875-125 mg Tab 875 Mg PO BID 10 Days not for use in CrCl <30 ml/min. Losartan (Losartan Potassium) 25 Mg Tab 25 Mg PO DAILY Furosemide 40 Mg Tab 40 Mg PO BID Sotalol (Sotalol HCl) 80 Mg Tab 80 Mg PO BID Crestor (Rosuvastatin Calcium) 20 Mg Tab 20 Mg PO DAILY Novolog Mix 70-30 Inj (Insulin Aspart Prota 70%/Aspart 30%) 1,000 Unit/10 Ml Vial 15 Units SQ BID 30 Days Levemir Inj (Insulin Detemir) 1,000 unit/ 10 ML Vial 30 Units SQ BID 30 Days Do not mix with any other Insulin. Reported Warfarin 6 Mg Tab 6 Mg PO DAILY Review of Systems Except as stated in HPI: all other systems reviewed are Neg Physical Exam Narrative GENERAL: Well-nourished, well-developed male patient, ambulatory. Afebrile. SKIN: Focused skin assessment warm/dry. HEAD: Normocephalic. Atraumatic. EYES: No scleral icterus. No injection or drainage. NECK: Supple, trachea midline. No JVD or lymphadenopathy. CARDIOVASCULAR: Regular rate and rhythm without murmurs, gallops, or rubs. Bilateral radial and pedal pulses are equal throughout. RESPIRATORY: Breath sounds equal bilaterally. No accessory muscle use. Lungs sounds diminished throughout. GASTROINTESTINAL: Abdomen soft, non-tender, nondistended. MUSCULOSKELETAL: No cyanosis, or edema. BACK: Nontender without obvious deformity. No CVA tenderness. Data Data Last Documented VS Vital Signs Date Time Temp Pulse Resp B/P Pulse Ox O2 Delivery O2 Flow Rate FiO2 11/18/16 12:27 97 Nasal Cannula 2 11/18/16 12:27 22 11/18/16 12:02 74 11/18/16 11:54 98.2 159/65 Orders Complete Blood Count With Diff (11/18/16 12:05) Basic Metabolic Panel (Bmp) (11/18/16 12:05) B-Type Natriuretic Peptide (11/18/16 12:05) Act Partial Throm Time (Ptt) (11/18/16 12:05) Prothrombin Time / Inr (Pt) (11/18/16 12:05) Magnesium (Mg) (11/18/16 12:05) Ckmb (Isoenzyme) Profile (11/18/16 12:05) Troponin I (11/18/16 12:05) Iv Access Insert/Monitor (11/18/16 12:05) Electrocardiogram (11/18/16 12:05) Ecg Monitoring (11/18/16 12:05) Oximetry (11/18/16 12:05) Oxygen Administration (11/18/16 12:05) Chest, Single Ap (11/18/16 12:05) Sodium Chloride 0.9% Flush (Ns Flush) (11/18/16 12:15) Albuterol-Ipratropium Neb (Duoneb Neb) (11/18/16 12:15) Aspirin (Aspirin) (11/18/16 13:15) Labs Laboratory Tests Test 11/18/16 12:22 White Blood Count 13.6 TH/MM3 Red Blood Count 3.39 MIL/MM3 Hemoglobin 10.5 GM/DL Hematocrit 31.6 % Mean Corpuscular Volume 93.2 FL Mean Corpuscular Hemoglobin 31.1 PG Mean Corpuscular Hemoglobin 33.4 % Concent Red Cell Distribution Width 16.8 % Platelet Count 159 TH/MM3 Mean Platelet Volume 9.7 FL Neutrophils (%) (Auto) % Lymphocytes (%) (Auto) % Monocytes (%) (Auto) % Eosinophils (%) (Auto) % Basophils (%) (Auto) % Neutrophils # (Auto) TH/MM3 Lymphocytes # (Auto) TH/MM3 Monocytes # (Auto) TH/MM3 Eosinophils # (Auto) TH/MM3 Basophils # (Auto) TH/MM3 CBC Comment AUTO DIFF Differential Total Cells 100 Counted Neutrophils % (Manual) 42 % Band Neutrophils % 6 % Lymphocytes % 33 % Monocytes % 10 % Eosinophils % 1 % Neutrophils # (Manual) 6.5 TH/MM3 Differential Comment FINAL DIFF MANUAL Atypical Lymphocytes 8 % Platelet Estimate NORMAL Platelet Morphology Comment NORMAL Polychromasia 2.2 % Ovalocytes 2+ Prothrombin Time 19.8 SEC Prothromb Time International 1.7 RATIO Ratio Activated Partial 32.5 SEC Thromboplast Time Sodium Level 134 MEQ/L Potassium Level 4.7 MEQ/L Chloride Level 100 MEQ/L Carbon Dioxide Level 28.2 MEQ/L Anion Gap 6 MEQ/L Blood Urea Nitrogen 40 MG/DL Creatinine 1.77 MG/DL Estimat Glomerular Filtration 39 ML/MIN Rate Random Glucose 312 MG/DL Calcium Level 8.5 MG/DL Magnesium Level 2.1 MG/DL Total Creatine Kinase 42 U/L Troponin I 0.08 NG/ML B-Type Natriuretic Peptide 221 PG/ML MDM Medical Decision Making Medical Screen Exam Complete: Yes Emergency Medical Condition: Yes Medical Record Reviewed: Yes Interpretation(s) chest x-ray - CONCLUSION: Under aerated. Otherwise, negative. Differential Diagnosis CHF exacerbation versus bronchitis versus pneumonia versus ACS Narrative Course 61-year-old male presents to the emergency department for a dilation shortness of breath for 6 weeks that is increasing despite multiple visits to the emergency department. Lungs sounds are diminished throughout. EKG, CBC, BMP, CK, troponin, magnesium, BNP, PTT, PT/INR, chest x-ray are ordered and pending. EKG shows SR, right BBB, HR 71, no acute ST changes. CBC shows leukocytosis 13.6, hemoglobin 10.5, hematocrit 31.6. BMP shows stable BUN and creatinine of 40/1.77, glucose 312. CK is 42. Troponin is slightly elevated 0.08. Magnesium is 2.1. BNP is 221. PT is 19.8, INR 1.7, PTT 32.5. Chest x-ray is under aerated, otherwise negative. Residents accepted admission. Diagnosis Primary Impression: Shortness of breath Additional Impressions: Elevated troponin Chest pain Qualified Code: R07.9 - Chest pain, unspecified type Admitting Information Admitting Physician Requests: Theresa Morales Nov 18, 2016 12:18
[2016-11-18 12:35] LABS: HEMATOCRIT 31.6 % (39.0-51.0); MEAN CELL VOLUME 93.2 FL (80.0-100.0); MEAN CORPUSCULAR HEMOGLOBIN 31.1 PG (27.0-34.0); MEAN CORPUSCULAR HGB CONC 33.4 % (32.0-36.0); PLATELET COUNT 159 TH/MM3 (150-450); RED BLOOD COUNT 3.39 MIL/MM3 (4.50-5.90); RED CELL DISTRIBUTION WIDTH 16.8 % (11.6-17.2); WHITE BLOOD COUNT 13.6 TH/MM3 (4.0-11.0)
[2016-11-18 12:36] LABS: HEMO FLAGS AUTO DIFF
[2016-11-18 12:42] LABS: APTT (PATIENT) 32.5 SEC (24.3-30.1); INTERNATIONAL NORMALIZED RATIO 1.7 RATIO; PROTHROMBIN TIME - PATIENT 19.8 SEC (9.8-11.6)
[2016-11-18 12:52] LABS: BICARBONATE 28.2 MEQ/L (21.0-32.0); MAGNESIUM 2.1 MG/DL (1.5-2.5); POTASSIUM 4.7 MEQ/L (3.5-5.1)
--- NOTE | 2016-11-18 12:55 | RADRPT ---
EXAM DATE/TIME: 11/18/2016 12:12 [facility] COMPARISON: CHEST SINGLE AP, November 05, 2016, 0:57. INDICATIONS : Short of breath. MEDICAL HISTORY : None. SURGICAL HISTORY : None. ENCOUNTER: Initial ACUITY: 1 day PAIN SCORE: 7/10 LOCATION: Bilateral chest FINDINGS: The lungs are under aerated. There is no overt congestive failure, alveolar consolidation or pleural effusion. Portion of bony skeleton visualized is unremarkable. CONCLUSION: Under aerated. Otherwise, negative. Zachary Allen MD FACR on November 18, 2016 at 12:53 Board Certified Radiologist. This report was verified electronically.
[2016-11-18 13:05] LABS: BANDS 6 % (0-6); EOSINOPHILS 1 % (0-4); NEUTROPHIL # MANUAL DIFF 6.5 TH/MM3 (1.8-7.7); POLYS (SEG NEUTROPHILS) 42 % (16-70); WBC DIFF SAMPLE 100
[2016-11-18 13:09] LABS: POLYCHROMASIA 2.2 % (0.0-1.9)
[2016-11-18 13:13] LABS: ATYPICAL LYMPHOCYTES 8 % (0-0)
[2016-11-18 13:14] LABS: OVALOCYTES 2+ (NORMAL); PLATELET ESTIMATE SMEAR NORMAL (NORMAL); PLATELET MORPHOLOGY NORMAL (NORMAL)
[2016-11-18 13:15] LABS: SCAN/DIFF FINAL DIFF MANUAL
[2016-11-18] MEDS ORDERED: ASPIRIN 325 MG TAB PO ONE (13:15)
--- NOTE | 2016-11-18 13:38 | PD ---
Physical Exam Narrative GENERAL: Well-nourished, well-developed patient. SKIN: Warm and dry. HEAD: Normocephalic and atraumatic. EYES: No injection or drainage. ENT: No nasal drainage noted. NECK: Supple, trachea midline. CARDIOVASCULAR: Regular rate and rhythm RESPIRATORY: Breath sounds equal bilaterally. No accessory muscle use. NEUROLOGICAL: Awake and alert. moves all extremities. Normal speech. Data Data Last Documented VS Vital Signs Date Time Temp Pulse Resp B/P Pulse Ox O2 Delivery O2 Flow Rate FiO2 11/18/16 12:27 97 Nasal Cannula 2 11/18/16 12:27 22 11/18/16 12:02 74 11/18/16 11:54 98.2 159/65 Orders Complete Blood Count With Diff (11/18/16 12:05) Basic Metabolic Panel (Bmp) (11/18/16 12:05) B-Type Natriuretic Peptide (11/18/16 12:05) Act Partial Throm Time (Ptt) (11/18/16 12:05) Prothrombin Time / Inr (Pt) (11/18/16 12:05) Magnesium (Mg) (11/18/16 12:05) Ckmb (Isoenzyme) Profile (11/18/16 12:05) Troponin I (11/18/16 12:05) Iv Access Insert/Monitor (11/18/16 12:05) Electrocardiogram (11/18/16 12:05) Ecg Monitoring (11/18/16 12:05) Oximetry (11/18/16 12:05) Oxygen Administration (11/18/16 12:05) Chest, Single Ap (11/18/16 12:05) Sodium Chloride 0.9% Flush (Ns Flush) (11/18/16 12:15) Albuterol-Ipratropium Neb (Duoneb Neb) (11/18/16 12:15) Aspirin (Aspirin) (11/18/16 13:15) Admit Order (Ed Use Only) (11/18/16 13:20) Labs Laboratory Tests Test 11/18/16 12:22 White Blood Count 13.6 TH/MM3 Red Blood Count 3.39 MIL/MM3 Hemoglobin 10.5 GM/DL Hematocrit 31.6 % Mean Corpuscular Volume 93.2 FL Mean Corpuscular Hemoglobin 31.1 PG Mean Corpuscular Hemoglobin 33.4 % Concent Red Cell Distribution Width 16.8 % Platelet Count 159 TH/MM3 Mean Platelet Volume 9.7 FL Neutrophils (%) (Auto) % Lymphocytes (%) (Auto) % Monocytes (%) (Auto) % Eosinophils (%) (Auto) % Basophils (%) (Auto) % Neutrophils # (Auto) TH/MM3 Lymphocytes # (Auto) TH/MM3 Monocytes # (Auto) TH/MM3 Eosinophils # (Auto) TH/MM3 Basophils # (Auto) TH/MM3 CBC Comment AUTO DIFF Differential Total Cells 100 Counted Neutrophils % (Manual) 42 % Band Neutrophils % 6 % Lymphocytes % 33 % Monocytes % 10 % Eosinophils % 1 % Neutrophils # (Manual) 6.5 TH/MM3 Differential Comment FINAL DIFF MANUAL Atypical Lymphocytes 8 % Platelet Estimate NORMAL Platelet Morphology Comment NORMAL Polychromasia 2.2 % Ovalocytes 2+ Prothrombin Time 19.8 SEC Prothromb Time International 1.7 RATIO Ratio Activated Partial 32.5 SEC Thromboplast Time Sodium Level 134 MEQ/L Potassium Level 4.7 MEQ/L Chloride Level 100 MEQ/L Carbon Dioxide Level 28.2 MEQ/L Anion Gap 6 MEQ/L Blood Urea Nitrogen 40 MG/DL Creatinine 1.77 MG/DL Estimat Glomerular Filtration 39 ML/MIN Rate Random Glucose 312 MG/DL Calcium Level 8.5 MG/DL Magnesium Level 2.1 MG/DL Total Creatine Kinase 42 U/L Troponin I 0.08 NG/ML B-Type Natriuretic Peptide 221 PG/ML MDM Supervised Visit with BING: Yes Interpretation(s) CBC & BMP Diagram 11/18/16 12:22 EKG is sinus rhythm without STEMI criteria Narrative Course I, Dr. dumont, have reviewed the advance practice practitioner's documentation and am in agreement, met with the patient face to face, made the diagnosis, and the medical decision making was done by me. *My assessment and Findings: 61-year-old male presents with shortness of breath and chest pain with recent ER visits for bronchitis. Given his risk factors Will check cardiac workup ER workup with mild elevation of troponin, given aspirin and will place in observation which patient agrees to Diagnosis Primary Impression: Shortness of breath Additional Impressions: Elevated troponin Chest pain Qualified Code: R07.9 - Chest pain, unspecified type Admitting Information Admitting Physician Requests: Observation Cornelia Dumont MD Nov 18, 2016 13:38
[2016-11-18] MEDS ORDERED: GABA300C5 PO (14:08)
--- NOTE | 2016-11-18 14:46 | HHI.HP ---
HPI Service Family Medicine Primary Care Physician Jeremías Amezcua, DO Admission Diagnosis elevated troponin,chest pain,SOB Diagnoses: International Travel<30 Days: No Contact w/Intl Traveler<30days: No Known Affected Area: No History of Present Illness 61 yo male with PMH of multiple MIs s/p stenting, Afib s/p ablation, DM, CHF, HTN presenting with SOB for about 6 weeks. Progressively worsening. Also notes soreness in his chest. No palpitations, diaphoresis; no sick contacts. Exertion exacerbates pain. Can walk about fifteen hundred yards before getting extremely short of breath. Also noting dry cough for 6 weeks. No malaise. Ankle swelling for three to four weeks. Last echo six months ago with unknown EF per patient. ( Erci Mckeon MD R1) Review of Systems Constitutional: DENIES: Fever, Chills Endocrine: DENIES: Polyuria Eyes: DENIES: Blurred vision Ears, nose, mouth, throat: DENIES: Hearing loss Respiratory: COMPLAINS OF: Cough, Shortness of breath, DENIES: Wheezing, Sputum production Cardiovascular: COMPLAINS OF: Dyspnea on Exertion, DENIES: Chest pain, Palpitations Gastrointestinal: DENIES: Abdominal pain, Black stools, Bloody stools, Constipation, Diarrhea, Nausea, Vomiting Genitourinary: DENIES: Urinary frequency Musculoskeletal: DENIES: Joint pain, Muscle aches Integumentary: DENIES: Rash Hematologic/lymphatic: DENIES: Bruising Immunologic/allergic: DENIES: Urticaria Neurologic: DENIES: Headache Psychiatric: DENIES: Anxiety, Depression (Eric Mckeon MD R1) Past Family Social History Past Medical History MIx3 most recent was in 2008, s/p stenting drug eluting medicines One CVA in 2012 CHF HTN DM Past Surgical History Eye sx Appendix (Eric Mckeon MD R1) Allergies: Coded Allergies: No Known Allergies (Unverified , 11/18/16) Family History Father - heart disease, parkinson's Mom - heart disease Social History tob - never smoker alc - none last 22 years. 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 Cool and dry. HEAD: NC/AT EYES: PERRL. EOMI. No conjunctival injection or drainage. ENT: MMM, OP without erythema, tonsillar swelling, or exudate. NECK: Supple, no lymphadenopathy. No JVD. No hepato-jugular reflex. CARDIOVASCULAR: NRRR. Normal S1/S2. No MRG. RESPIRATORY: CTAB. No crackles or wheezes. GASTROINTESTINAL: Abdomen soft, non-distended, non-tender. No hepato- splenomegaly or palpable masses. MUSCULOSKELETAL: Extremities without clubbing, cyanosis. Trace edema to b/l ankles. No calf tenderness. Ashwini's sign negative b/l. NEUROLOGICAL: Awake and alert. Cranial nerves II through XII grossly intact. Moves all extremities without difficulty. Normal speech. Laboratory Laboratory Tests Test 11/18/16 12:22 White Blood Count 13.6 Red Blood Count 3.39 Hemoglobin 10.5 Hematocrit 31.6 Mean Corpuscular Volume 93.2 Mean Corpuscular Hemoglobin 31.1 Mean Corpuscular Hemoglobin 33.4 Concent Red Cell Distribution Width 16.8 Platelet Count 159 Mean Platelet Volume 9.7 Neutrophils (%) (Auto) Lymphocytes (%) (Auto) Monocytes (%) (Auto) Eosinophils (%) (Auto) Basophils (%) (Auto) Neutrophils # (Auto) Lymphocytes # (Auto) Monocytes # (Auto) Eosinophils # (Auto) Basophils # (Auto) CBC Comment AUTO DIFF Differential Total Cells 100 Counted Neutrophils % (Manual) 42 Band Neutrophils % 6 Lymphocytes % 33 Monocytes % 10 Eosinophils % 1 Neutrophils # (Manual) 6.5 Differential Comment FINAL DIFF MANUAL Atypical Lymphocytes 8 Platelet Estimate NORMAL Platelet Morphology Comment NORMAL Polychromasia 2.2 Ovalocytes 2+ Prothrombin Time 19.8 Prothromb Time International 1.7 Ratio Activated Partial 32.5 Thromboplast Time Sodium Level 134 Potassium Level 4.7 Chloride Level 100 Carbon Dioxide Level 28.2 Anion Gap 6 Blood Urea Nitrogen 40 Creatinine 1.77 Estimat Glomerular Filtration 39 Rate Random Glucose 312 Calcium Level 8.5 Magnesium Level 2.1 Total Creatine Kinase 42 Troponin I 0.08 B-Type Natriuretic Peptide 221 (Eric Mckeon MD R1) Result Diagram: 11/18/16 1222 11/18/16 1222 Assessment and Plan Assessment and Plan 61 year old male with PMH of multiple MIs, DM, CHF, HTN presenting with: Code Status Full code (Eric Mckeon MD R1) Attending Attestation Patient seen, examined and discussed with resident team. I agree with assessment and management as documented and discussed with me. Farshad Gonzales is a 61yo gentleman with known CAD, CHF, and A fib s/p ablation admitted for SOB. Evaluation concerning with mildly elevated troponin 0.08. Will trend troponin / EKG. Check 2d Echo. Consider also stress test in AM to fully evaluate vs addition of long acting nitrate. Additional diagnoses: Normocytic anemia: Mild. Suspect secondary to chronic kidney disease. No obvious blood loss. (Daly Mancuso MD) Problem List: (1) Shortness of breath Status: Acute Plan: Given subacute onset, differential is broad and includes stable angina, chronic PE, CHF worsening, ACS, arrhythmia. Troponin I = 0.08 WBC 13.6, no bands/neutrophilia, + monocytosis Mild anemia (Hgb 10.5) BNP 221 (elevated) D-dimer 0.57 (wnl for age) CXR underaerated, enlarged heart (> 1/2 chest diameter), questionable pulmonary edema, final read pending * Limited echo to evaluate EF * Well's score 0 and normal D-dimer effectively excludes PE * Obtain PA/lateral CXR to obtain better images * Trend troponin, CKMB, EKG * Monitor CBC, BNP * Daily weight * Continue home CHF medicines as below; exam not strongly suggestive of CHF exacerbation so no need to change acute management * Telemetry (2) Leukocytosis Status: Acute Plan: Mild leukocytosis, exam findings not suggestive of infection, patient having no localizing symptoms besides SOB. CXR not suggestive of pneumonia. WBC 13.6 with monocytosis * Trend CBC (3) Diabetes 1.5, managed as type 1 Status: Chronic Plan: Serum glucose 312 on admission, per patient typically runs 200-300. * Diabetic diet * Hold home insulin regimen * Levemir 10 units BID * Novolog med dose SSI * Accu-checks TIDAC & HS * Adjust insulin regimen based on accu-checks * Daily BMP * Continue home gabapentin for neuropathy (4) CHF (congestive heart failure) Status: Chronic Plan: Could have chronic worsening but findings currently not suggestive of acute exacerbation * Continue home sotalol, lasix * Daily weights (5) Atrial fibrillation Status: Chronic Plan: Per patient and has h/o AFib s/p ablation. EKG showing NSR. * Continue coumadin 6 mg daily, follow up outpatient to determine need for further OAC (6) HTN (hypertension) Status: Acute Plan: BP slightly elevated on admission to 150s. * Continue home sotalol, losartan * Monitor BP (7) CAD (coronary artery disease), kiana coronary artery Status: Acute Plan: Stable CAD, last cath many years ago, has drug-eluting stents in place * On warfarin, continue as above * Continue home statin * Daily aspirin (8) CKD (chronic kidney disease) Status: Chronic Plan: Cr 1.77, patient does not know baseline but has been told he has mild CKD * Monitor BMP * Caution on fluids due to CHF (9) FEN/PPX Status: Acute Plan: Fluids: PO only Elecs: monitor and replete PRN Nutrition: Diet diabetic DVT: Lovenox SQ Pain: Tylenol, oxycodone PRN; morphine for breakthrough Sleep: Ambien HS PRN sdw Dr. Kang, Dr. Mancuso (Eric Mckeon MD R1) Problem List: (1) Shortness of breath Status: Acute Plan: Given subacute onset, differential is broad and includes stable angina, chronic PE, CHF worsening, ACS, arrhythmia. Troponin I = 0.08 WBC 13.6, no bands/neutrophilia, + monocytosis Mild anemia (Hgb 10.5) BNP 221 (elevated) D-dimer 0.57 (wnl for age) CXR underaerated, enlarged heart (> 1/2 chest diameter), questionable pulmonary edema, final read pending * Limited echo to evaluate EF * Well's score 0 and normal D-dimer effectively excludes PE * Obtain PA/lateral CXR to obtain better images * Trend troponin, CKMB, EKG * Monitor CBC, BNP * Daily weight * Continue home CHF medicines as below; exam not strongly suggestive of CHF exacerbation so no need to change acute management * Telemetry (2) Leukocytosis Status: Acute Plan: Mild leukocytosis, exam findings not suggestive of infection, patient having no localizing symptoms besides SOB. CXR not suggestive of pneumonia. WBC 13.6 with monocytosis * Trend CBC (3) Diabetes 1.5, managed as type 1 Status: Chronic Plan: Serum glucose 312 on admission, per patient typically runs 200-300. * Diabetic diet * Hold home insulin regimen * Levemir 10 units BID * Novolog med dose SSI * Accu-checks TIDAC & HS * Adjust insulin regimen based on accu-checks * Daily BMP * Continue home gabapentin for neuropathy (4) CHF (congestive heart failure) Status: Chronic Plan: Could have chronic worsening but findings currently not suggestive of acute exacerbation * Continue home sotalol, lasix * Daily weights (5) Atrial fibrillation Status: Chronic Plan: Per patient and has h/o AFib s/p ablation. EKG showing NSR. * Continue coumadin 6 mg daily, follow up outpatient to determine need for further OAC (6) HTN (hypertension) Status: Acute Plan: BP slightly elevated on admission to 150s. * Continue home sotalol, losartan * Monitor BP (7) CAD (coronary artery disease), kiana coronary artery Status: Acute Plan: Stable CAD, last cath many years ago, has drug-eluting stents in place * On warfarin, continue as above * Continue home statin * Daily aspirin (8) CKD (chronic kidney disease) Status: Chronic Plan: Cr 1.77, patient does not know baseline but has been told he has mild CKD * Monitor BMP * Caution on fluids due to CHF (9) FEN/PPX Status: Acute Plan: Fluids: PO only Elecs: monitor and replete PRN Nutrition: Diet diabetic DVT: Lovenox SQ Pain: Tylenol, oxycodone PRN; morphine for breakthrough Sleep: Ambien HS PRN sdw Dr. Kang, Dr. Mancuso (Daly Mancuso MD) Problem Qualifiers (1) Leukocytosis: Qualified Code: D72.821 - Monocytosis (2) CHF (congestive heart failure): Qualified Code: I50.9 - Chronic congestive heart failure, unspecified congestive heart failure type (3) Atrial fibrillation: Qualified Code: I48.91 - Atrial fibrillation, unspecified type (4) HTN (hypertension): Qualified Code: I10 - Essential hypertension (5) CAD (coronary artery disease), kiana coronary artery: Qualified Code: I25.10 - Coronary artery disease involving kiana coronary artery of kiana heart without angina pectoris Eric Mckeon MD R1 Nov 18, 2016 14:46 Daly Mancuso MD Nov 18, 2016 20:28
[2016-11-18] MEDS ORDERED: guaiFENesin/CODEINE SYRUP 200 MG/20 MG/10 ML CUP PO PRN (15:00)
[2016-11-18] MEDS ORDERED: ZOLPIDEM TARTRATE 5 MG TAB PO PRN (15:30)
[2016-11-18] MEDS ORDERED: SODIUM CHLORIDE 0.9% FLUSH 10 ML FLUSH IV FLUSH PRN (15:30)
[2016-11-18] MEDS ORDERED: ACETAMINOPHEN 500 MG CPLT PO PRN (15:30)
[2016-11-18] MEDS ORDERED: SENNOSIDES 8.6 MG TAB PO PRN (15:30)
[2016-11-18] MEDS: WARFARIN SOD 6 MG TAB PO SCH (18:39)
[2016-11-18] MEDS: INSULIN ASPART SUPPLEMENTAL SCALE SQ SCH ×2 (18:40→21:12)
[2016-11-18] MEDS: SOTALOL HCL 80 MG TAB PO SCH (21:10)
[2016-11-18] MEDS: GABAPENTIN 300 MG CAP PO SCH (21:11)
[2016-11-18] MEDS: FUROSEMIDE 40 MG TAB PO SCH (21:11)
[2016-11-18] MEDS: SODIUM CHLORIDE 0.9% FLUSH 10 ML FLUSH IV FLUSH SCH (21:11)
[2016-11-18] MEDS: INSULIN DETEMIR 100 UNITS/ML VIAL SQ SCH (21:12)
--- NOTE | 2016-11-18 21:21 | RADRPT ---
EXAM DATE/TIME: 11/18/2016 20:01 [facility] COMPARISON: CHEST PA & LAT, November 11, 2016, 13:48. INDICATIONS : Shortness of breath. MEDICAL HISTORY : Hypertension. Congestive heart failure. SURGICAL HISTORY : Coronary artery stent. ENCOUNTER: Subsequent ACUITY: 3 days PAIN SCORE: 0/10 LOCATION: Bilateral chest FINDINGS: PA and lateral views of the chest demonstrate subsegmental basilar opacity most characteristic of ate lectasis. No effusion. No pneumothorax. Heart size upper limits normal. CONCLUSION: 1. Minimal basilar atelectasis. No effusion or pneumothorax. Ab Nieves MD on November 18, 2016 at 21:17 Board Certified Radiologist. This report was verified electronically.
[2016-11-19 03:44] VITALS: BP 135/65; PULSE 70; RESP 20; TEMP 98.6; O2SAT 95
[2016-11-19 04:26] VITALS: PULSE 75
[2016-11-19 06:06] LABS: HEMATOCRIT 29.5 % (39.0-51.0); MEAN CELL VOLUME 92.8 FL (80.0-100.0); MEAN CORPUSCULAR HEMOGLOBIN 31.1 PG (27.0-34.0); MEAN CORPUSCULAR HGB CONC 33.5 % (32.0-36.0); PLATELET COUNT 149 TH/MM3 (150-450); RED BLOOD COUNT 3.18 MIL/MM3 (4.50-5.90); RED CELL DISTRIBUTION WIDTH 17.3 % (11.6-17.2); WHITE BLOOD COUNT 12.8 TH/MM3 (4.0-11.0)
[2016-11-19] MEDS: INSULIN ASPART SUPPLEMENTAL SCALE SQ SCH ×3 (06:24→16:33)
[2016-11-19 06:30] LABS: HEMO FLAGS AUTO DIFF
[2016-11-19 06:57] LABS: ALKALINE PHOSPHATASE 82 U/L (45-117); ALT (GPT) 81 U/L (12-78); ANION GAP 5 MEQ/L (5-15); AST (GOT) 68 U/L (15-37); BICARBONATE 30.3 MEQ/L (21.0-32.0); BLOOD UREA NITROGEN 44 MG/DL (7-18); CHLORIDE 102 MEQ/L (98-107); GLOMERULAR FILTRATION RATE 37 ML/MIN (>89); POTASSIUM 4.6 MEQ/L (3.5-5.1); SODIUM (NA) 137 MEQ/L (136-145); TOTAL BILIRUBIN ADULT 0.7 MG/DL (0.2-1.0)
[2016-11-19 07:39] VITALS: BP 130/67; PULSE 70; RESP 18; TEMP 98; O2SAT 95
[2016-11-19 07:57] LABS: BANDS 2 % (0-6); BASOPHILS 1 % (0-2); EOSINOPHILS 2 % (0-4); NEUTROPHIL # MANUAL DIFF 5.6 TH/MM3 (1.8-7.7); OVALOCYTES 2+ (NORMAL); POLYS (SEG NEUTROPHILS) 42 % (16-70); SMUDGE CELLS PRESENT PRESENT; WBC DIFF SAMPLE 100
[2016-11-19 07:58] LABS: PLATELET ESTIMATE SMEAR NORMAL (NORMAL); PLATELET MORPHOLOGY NORMAL (NORMAL); SCAN/DIFF FINAL DIFF MANUAL
[2016-11-19] MEDS ORDERED: LOSARTAN 25 MG TAB PO SCH (09:00)
[2016-11-19] MEDS ORDERED: ATORVASTATIN 40 MG TAB PO SCH (09:00)
[2016-11-19] MEDS ORDERED: ASPIRIN EC 81 MG TABEC PO SCH (09:00)
[2016-11-19] MEDS: SODIUM CHLORIDE 0.9% FLUSH 10 ML FLUSH IV FLUSH SCH (09:00)
[2016-11-19] MEDS ORDERED: LORazepam 2 MG/ML VIAL IV PUSH ONE (10:00)
[2016-11-19] MEDS ORDERED: REGADENOSON INJ 0.4 MG/5 ML SYR ONE (10:15)
--- NOTE | 2016-11-19 10:34 | EKG ---
Date Performed: 11/19/2016 Time Performed: 00:01:39 PTAGE: 61 years EKG: Sinus rhythm RIGHT BUNDLE BRANCH BLOCK ABNORMAL ECG PREVIOUS TRACING : 11/18/2016 17.54 DOCTOR: Sekou Toro Interpretating Date/Time 11/19/2016 10:32:46
--- NOTE | 2016-11-19 10:39 | EKG ---
Date Performed: 11/18/2016 Time Performed: 17:54:18 PTAGE: 61 years EKG: Sinus rhythm RIGHT BUNDLE BRANCH BLOCK ABNORMAL ECG PREVIOUS TRACING : 11/18/2016 12.06 DOCTOR: Sekou Toro Interpretating Date/Time 11/19/2016 10:35:02
--- NOTE | 2016-11-19 11:22 | EKG ---
Date Performed: 11/18/2016 Time Performed: 12:06:35 PTAGE: 61 years EKG: Sinus rhythm RIGHT BUNDLE BRANCH BLOCK ABNORMAL ECG PREVIOUS TRACING : 11/11/2016 13.47 DOCTOR: Sekou Toro Interpretating Date/Time 11/19/2016 11:20:46
--- NOTE | 2016-11-19 11:41 | RADRPT ---
EXAM DATE/TIME: 11/19/2016 09:14 [facility] COMPARISON: No previous studies available for comparison. INDICATIONS : Shortness of breath intermittent for six weeks. Coronary artery disease. Atrial fibrillation. DOSE: 31.4 mCi Tc99m Myoview at stress. 10.3 mCi Tc99m Myoview at rest. 0.4 mg Lexiscan STRESS SYMPTOMS: Nausea. EJECTION FRACTION: 39% MEDICAL HISTORY : Hypertension. Congestive heart failure. Diabetes mellitus type 2. SURGICAL HISTORY : Coronary artery stent. Appendectomy. ENCOUNTER: Initial ACUITY: 1 month PAIN SCALE: 0/10 LOCATION: chest TECHNIQUE: The patient underwent pharmacologic stress with infusion of prescribed dose. Continuous ECG tracing was monitored during stress. Gated SPECT imaging was performed after stress and conventional SPECT i maging was performed at rest. The examination was performed on a SPECT/CT scanner, both attenuation and non-corrected datasets were reviewed. FINDINGS: DISTRIBUTION: The maximum perfused segment at stress is in the anteroseptal wall. PERFUSION STUDY: The exam demonstrates a large, fixed perfusion defect involving the inferior wall. No reversible perf usion abnormalities identified. GATED STUDY: There is hypokinesis of the inferior wall with decreased ejection fraction. CONCLUSION: 1. Large, fixed perfusion defect inferiorly suggesting infarct. No reversible perfusion defect identi fied. 2. Decreased ejection fraction at 39%. RISK CATEGORY: Intermediate (1-3% Annual Mortality Rate) Inder Allen MD on November 19, 2016 at 11:38 Board Certified Radiologist. This report was verified electronically.
[2016-11-19 11:48] VITALS: BP 146/67; PULSE 75; RESP 18; TEMP 98.3; O2SAT 95
[2016-11-19] MEDS: INSULIN DETEMIR 100 UNITS/ML VIAL SQ SCH (12:36)
[2016-11-19] MEDS: FUROSEMIDE 40 MG TAB PO SCH (12:36)
[2016-11-19] MEDS: GABAPENTIN 300 MG CAP PO SCH (12:37)
[2016-11-19] MEDS: SOTALOL HCL 80 MG TAB PO SCH (12:37)
--- NOTE | 2016-11-19 13:46 | HHI.FPPN ---
Subjective Remarks No acute events overnight. T 100.0 at 2356, BP ranging 135-151/63-78. Today he notes improved shortness of breath, still some persistent achiness in the chest. Otherwise he has no concerns. (Eric Mckeon MD R1) Objective Vitals Vital Signs Date Time Temp Pulse Resp B/P Pulse Ox O2 Delivery O2 Flow Rate FiO2 11/19/16 11:48 98.3 75 18 146/67 95 11/19/16 07:39 98.0 70 18 130/67 95 11/19/16 04:26 75 11/19/16 03:44 98.6 70 20 135/65 95 11/18/16 23:56 100.0 76 20 144/63 99 11/18/16 19:45 97.9 68 20 148/66 95 11/18/16 19:15 97 Nasal Cannula 2.00 11/18/16 14:32 82 18 151/78 97 Nasal Cannula (Eric Mckeon MD R1) Result Diagram: 11/19/16 0516 11/19/16 0516 Imaging Last Impressions Myocardial Perfusion Scan Nuc Med 11/19/16 0600 Signed Impressions: Service Date/Time: Saturday, November 19, 2016 09:14 - CONCLUSION: 1. Large, fixed perfusion defect inferiorly suggesting infarct. No reversible perfusion defect identified. 2. Decreased ejection fraction at 39%%. RISK CATEGORY: Intermediate (1-3%% Annual Mortality Rate) Inder Allen MD Chest X-Ray 11/18/16 0000 Signed Impressions: Service Date/Time: Friday, November 18, 2016 20:01 - CONCLUSION: 1. Minimal basilar atelectasis. No effusion or pneumothorax. Ab Nieves MD Objective Remarks GEN: WDWN overweight white male sitting in bed appearing drowsy but in NAD SKIN: Warm and dry, no rashes or lesions RESP: Crackles bilaterally at the lung bases. No wheezing. CV: NRRR, normal S1/S2, no MRG. PMI slightly displaced laterally. ABD: Soft, NDNT MSK: Trace edema to b/l ankles. No clubbing/cyanosis. Medications and IVs Current Medications Medications (Trade) Dose Ordered Sig/Christian Route Start Time Stop Time Status Last Admin (Lasix) 40 mg BID PO 11/18/16 21:00 11/19/16 12:36 (Neurontin) 300 mg BID PO 11/18/16 21:00 11/19/16 12:37 (Robitussin Ac 200-20 Mg/10 ml Liq) 5 ml Q6H PRN PO 11/18/16 15:00 11/18/16 22:31 (Cozaar) 25 mg DAILY PO 11/19/16 09:00 11/19/16 12:36 (Betapace) 80 mg BID PO 11/18/16 21:00 11/19/16 12:37 (Coumadin) 6 mg DAILY@16 PO 11/18/16 16:00 11/18/16 18:39 (Lipitor) 40 mg DAILY PO 11/19/16 09:00 11/19/16 12:37 (NS Flush) 2 ml UNSCH PRN IV FLUSH 11/18/16 15:30 (NS Flush) 2 ml BID IV FLUSH 11/18/16 21:00 11/18/16 21:11 (Senokot) 17.2 mg Q12H PRN PO 11/18/16 15:30 (Ambien) 5 mg HS PRN PO 11/18/16 15:30 (Roxicodone) 5 mg Q4H PRN PO 11/18/16 15:30 (Tylenol) 500 mg Q6H PRN PO 11/18/16 15:30 11/19/16 00:46 (Levemir Inj) 10 units Q12HR SQ 11/18/16 21:00 11/19/16 12:36 (Ecotrin Ec) 81 mg DAILY PO 11/19/16 09:00 11/19/16 12:37 (Eric Mckeon MD R1) A/P Assessment and Plan 61 year old male with PMH of multiple MIs, DM, CHF, HTN presenting with: ( Eric Mckeon MD R1) Attending Attestation Patient seen, examined and discussed with resident team. I agree with assessment and management as documented and discussed with me. Pt reports breathing is improved. Nuclear stress test results reviewed with patient, which demonstrated fixed defect. Add long acting nitrate. If no improvement in symptoms with this new medication , may consider PFTs as an outpatient (although patient with no smoking history). Pt stable - discharge home today. (Daly Mancuso MD) Problem List: (1) Shortness of breath Status: Acute Plan: Given subacute onset, differential is broad and includes stable angina, chronic PE, CHF worsening. Troponin I = 0.08, 0.06, 0.06 WBC 13.6 --> 12.8, no bands/neutrophilia, + monocytosis Mild anemia (Hgb 10.5 --> 9.9) BNP 221 --> 191 D-dimer 0.57 (wnl for age) CXR showing minimal atelectasis at bases, otherwise normal MPS showing large fixed perfusion defect inferiorly suggesting infarct ( probably old), EF 39% * Well's score 0 and normal D-dimer effectively excludes PE * Await results of Echo to further clarify EF * Monitor CBC, BNP * Daily weight * Continue home CHF medicines as below; exam not strongly suggestive of CHF exacerbation so no need to change acute management (2) Leukocytosis Status: Acute Plan: Mild leukocytosis, exam findings not suggestive of infection, patient having no localizing symptoms besides SOB. CXR not suggestive of pneumonia. WBC 13.6 --> 12.8 * Trend CBC (3) Diabetes 1.5, managed as type 1 Status: Chronic Plan: Serum glucose 312 on admission, per patient typically runs 200-300. * Diabetic diet * Hold home insulin regimen * Levemir 10 units BID * Novolog med dose SSI * Accu-checks TIDAC & HS * Adjust insulin regimen based on accu-checks * Continue home gabapentin for neuropathy (4) CHF (congestive heart failure) Status: Chronic Plan: Could have chronic worsening but findings currently not suggestive of acute exacerbation * Continue home sotalol, lasix * Daily weights (5) Atrial fibrillation Status: Chronic Plan: Per patient and has h/o AFib s/p ablation. EKG showing NSR. * Continue coumadin 6 mg daily, follow up outpatient to determine need for further OAC (6) HTN (hypertension) Status: Acute Plan: BP slightly elevated on admission to 150s, currently 130s-150 * Continue home sotalol, losartan * Monitor BP (7) CAD (coronary artery disease), mentasta coronary artery Status: Acute Plan: Stable CAD, last cath many years ago, has drug-eluting stents in place MPS as noted above (old inferior infarct) * On warfarin, continue as above * Continue home statin * Daily aspirin (8) CKD (chronic kidney disease) Status: Chronic Plan: Patient does not know baseline Cr but has been told he has mild CKD Cr 1.77 --> 1.85 * Monitor BMP * Caution on fluids due to CHF (9) FEN/PPX Status: Acute Plan: Fluids: PO only Elecs: monitor and replete PRN Nutrition: Diet diabetic DVT: Lovenox SQ Pain: Tylenol, oxycodone PRN; morphine for breakthrough Sleep: Ambien HS PRN sdw Dr. Taran Estrada, Dr. Mancuso (Eric Mckeon MD R1) Problem Qualifiers (1) Leukocytosis: Qualified Code: D72.821 - Monocytosis (2) CHF (congestive heart failure): Qualified Code: I50.9 - Chronic congestive heart failure, unspecified congestive heart failure type (3) Atrial fibrillation: Qualified Code: I48.91 - Atrial fibrillation, unspecified type (4) HTN (hypertension): Qualified Code: I10 - Essential hypertension (5) CAD (coronary artery disease), mentasta coronary artery: Qualified Code: I25.10 - Coronary artery disease involving mentasta coronary artery of mentasta heart without angina pectoris Eric Mckeon MD R1 Nov 19, 2016 13:46 Daly Mancuso MD Nov 19, 2016 19:55
--- NOTE | 2016-11-19 15:19 | ECHLIM ---
Study Study Date:11/19/2016 STUDY CONCLUSIONS SUMMARY LEFT VENTRICLE: The cavity size was normal. Wall thickness was normal. Systolic function was normal. The estimated ejection fraction was in the range of 55% to 60%. Possible hypokinesis of the posterior myocardium. If LV function is below 40, please consider prescribing an ACEI or ARB or document rationale for non-use. PROCEDURE DATA STUDY STATUS: Elective. Procedure: Transthoracic echocardiography. Image quality was suboptimal. Scanning was performed from the parasternal, apical, and subcostal acoustic windows. Study completion: The patient tolerated the procedure well. Transthoracic echocardiography. M-mode, complete 2D, complete spectral Doppler, and color Doppler. Patient status: Inpatient. CARDIAC ANATOMY LEFT VENTRICLE: The cavity size was normal. Wall thickness was normal. Systolic function was normal. The estimated ejection fraction was in the range of 55% to 60%. Regional wall motion abnormalities: Possible hypokinesis of the posterior myocardium. AORTIC VALVE: Trileaflet; normal thickness leaflets. Doppler: Transvalvular velocity was within the normal range. There was no stenosis. No regurgitation. AORTA: Aortic root: The aortic root was normal in size. MITRAL VALVE: Structurally normal valve. Doppler: Transvalvular velocity was within the normal range. There was no evidence for stenosis. Trace regurgitation. LEFT ATRIUM: The atrium was normal in size. RIGHT VENTRICLE: The cavity size was normal. Wall thickness was normal. PULMONIC VALVE: Doppler: Transvalvular velocity was within the normal range. There was no evidence for stenosis. No regurgitation. TRICUSPID VALVE: Structurally normal valve. Doppler: Transvalvular velocity was within the normal range. No regurgitation. PULMONARY ARTERY: The main pulmonary artery was normal-sized. Systolic pressure was within the normal range. RIGHT ATRIUM: The atrium was normal in size. PERICARDIUM: There was no pericardial effusion. SYSTEMIC VEINS: Inferior vena cava: Not visualized. BASIC MEASUREMENTS ADULT NORMAL Left ventricle LV internal dimension, ED, chordal level, 51.8 mm 43-52 PLAX LV internal dimension, ES, chordal level, *41 mm 23-38 PLAX Fractional shortening, chordal level, PLAX *21 % >29 LV posterior wall thickness, ED 9.32 mm IVS/LVPW ratio, ED 1.07 <1.3 Ventricular septum Septal thickness, ED 10 mm Aortic valve Leaflet separation 23 mm 15-26 Left atrium Anterior-posterior dimension 38 mm Right ventricle RV internal dimension, ED, PLAX 26.4 mm 19-38 BASIC MEASUREMENTS ADULT NORMAL Aortic valve Leaflet separation 23 mm 15-26 Aorta Root diameter, ED 34 mm 20-37 DOPPLER MEASUREMENTS ADULT NORMAL Main pulmonary artery Pressure, S 18 mm Hg =30 Mitral valve Peak E-wave velocity 65.6 cm/s Peak A-wave velocity 70.6 cm/s Peak E/A ratio 0.9 Tricuspid valve Regurgitant peak velocity 140 cm/s Peak RV-RA gradient, S 8 mm Hg Maximal regurgitant velocity 140 cm/s Systemic veins Estimated CVP 10 mm Hg Right ventricle RV pressure, S 18 mm Hg <30 LEGEND: Mean values are shown as u=mean value. Asterisk (*) armstrong values outside specified normal range. Prepared and signed by Corby Washington [id number]
[2016-11-19 15:37] VITALS: BP 104/55; PULSE 71; RESP 16; TEMP 98.1; O2SAT 95
[2016-11-19 15:52] VITALS: O2SAT 93
[2016-11-19] MEDS: WARFARIN SOD 6 MG TAB PO SCH (15:52)
[2016-11-19] MEDS ORDERED: ISOS10TA PO (15:55)
[2016-11-19] MEDS ORDERED: ASPI81TA11 PO (15:55)
--- NOTE | 2016-11-19 15:56 | HHI.DCPOC ---
Discharge Care Plan Diagnosis: (1) CHF (congestive heart failure) (2) CAD (coronary artery disease), [place] coronary artery (3) HTN (hypertension) (4) Atrial fibrillation (5) Diabetes 1.5, managed as type 1 Goals to Promote Your Health * To prevent worsening of your condition and complications * To maintain your health at the optimal level Directions to Meet Your Goals Take your medications as prescribed Follow your dietary instruction Follow activity as directed Keep your appointments as scheduled Take your immunizations and boosters as scheduled If your symptoms worsen call your PCP, if no PCP go to Urgent Care Center or Emergency Room Smoking is Dangerous to Your Health. Avoid second hand smoke Call the 24-hour hour crisis hotline for domestic abuse at Eric Mckeon MD R1 Nov 19, 2016 3:56 pm
== END 2016-11-19 16:41 | disposition home or self-care (01) ==
LOC: NEPE 11:48 → NEDA 13:23 → UNDOADMOB 13:23 → NEDA 16:18 → NEPGCP 16:18 → UNDODISOB 11-19 16:41
PROVIDERS: ADMIT Family Medicine; ATTEND Family Medicine
DX: R06.02 Shortness of breath (principal); I48.91 Unspecified atrial fibrillation; D64.9 Anemia, unspecified; D72.829 Elevated white blood cell count, unspecified; E11.22 Type 2 diabetes mellitus with diabetic chronic kidney disease; I13.0 Hypertensive heart and chronic kidney disease with heart failure and stage 1 through stage 4 chronic kidney disease, or unspecified chronic kidney disease; N18.9 Chronic kidney disease, unspecified; I25.10 Atherosclerotic heart disease of native coronary artery without angina pectoris; E11.40 Type 2 diabetes mellitus with diabetic neuropathy, unspecified; I50.9 Heart failure, unspecified; I25.2 Old myocardial infarction; Z86.73 Personal history of transient ischemic attack (TIA), and cerebral infarction without residual deficits; Z95.1 Presence of aortocoronary bypass graft; Z95.5 Presence of coronary angioplasty implant and graft; Z79.01 Long term (current) use of anticoagulants; Z79.4 Long term (current) use of insulin
CPT/HCPCS: 71010; 71020; 78452; 80048; 80053; 82550; 82948; 83735; 83880; 84484; 85007; 85027; 85379; 85610; 85730; 93005; 93017; 93308; 94664; 99285; A9502; G0378; J1815; J2060; J2785

== ENCOUNTER 2016-12-01 19:51 | Emergency (ER) | payer MEDICAID, MEDICARE, OTHER ==
[~2016-12-01] VITALS: Ht 167.6 cm; Wt 105.0 kg
[~2016-12-01 19:51] MED LIST changes: +ASPI81TA11 PO; -AUGM875T PO; -BENZ1CAP34 PO; -CEFU1TAB20 PO; +GABA300C5 PO; +ISOS10TA PO; -PRED10 PO
[2016-12-01 19:53] VITALS: BP 182/50; PULSE 71; RESP 16; TEMP 97.3; O2SAT 95
[2016-12-01] MEDS ORDERED: SODIUM CHLOR 0.9% 1000 ML INJ 1,000 ML IV SCH (20:38)
[2016-12-01] MEDS ORDERED: PANTOPRAZOLE INJ 80 MG in SODIUM CHLORIDE 0.9% INJ 35 ML IV ONE (20:45)
[2016-12-01] MEDS ORDERED: SODIUM CHLORIDE 0.9% FLUSH 10 ML FLUSH IVF PRN (20:45)
[2016-12-01] MEDS ORDERED: OCTREOTIDE INJ 500 MCG in SODIUM CHLORID 0.9% 500 ML INJ 500 ML IV SCH (20:45)
[2016-12-01] MEDS ORDERED: PANTOPRAZOLE INJ 80 MG in SODIUM CHLORIDE 0.9% INJ 100 ML IV SCH (20:45)
[2016-12-01] MEDS ORDERED: ONDANSETRON HCL 4 MG/2 ML VIAL IVP ONE (20:45)
[2016-12-01] MEDS ORDERED: HYDROmorphone HCL PF 1 MG/ML VIAL IM ONE (20:45)
[2016-12-01 21:00] VITALS: BP 149/90; PULSE 67; RESP 18; O2SAT 99
[2016-12-01 21:07] LABS: AUTOMATED NEUTROPHIL # 2.9 TH/MM3 (1.8-7.7); BASOPHIL # 0.1 TH/MM3 (0-0.2); BASOPHIL % 1.5 % (0.0-2.0); EOSINOPHIL # 0.1 TH/MM3 (0-0.4); EOSINOPHIL % 1.2 % (0.0-4.0); HEMO FLAGS DIFF FINAL; LYMPH % 56.1 % (9.0-44.0); MEAN CELL VOLUME 94.2 FL (80.0-100.0); MEAN CORPUSCULAR HEMOGLOBIN 31.4 PG (27.0-34.0); MEAN CORPUSCULAR HGB CONC 33.3 % (32.0-36.0); MONO % 8.2 % (0.0-8.0); PLATELET COUNT 158 TH/MM3 (150-450); RED CELL DISTRIBUTION WIDTH 19.3 % (11.6-17.2); WHITE BLOOD COUNT 8.9 TH/MM3 (4.0-11.0)
--- NOTE | 2016-12-01 21:13 | PD ---
HPI . Abdominal pain Chief Complaint: GI Complaint Time Seen by Provider: 20:38 Travel History International Travel<30 days: No Contact w/Intl Traveler<30days: No Traveled to known affect area: No History of Present Illness HPI Patient presents with a 3-4 day history of mid abdominal pain. He describes it as crampy and "pretty bad." It is unrelieved by Pepto-Bismol. He notes no exacerbating factors. It is associated with nausea but no vomiting. He does report loose stools. He has been taking Pepto-Bismol and his stools are now black. He denies any fever. He denies any urinary tract symptoms. He states that he has continued to have good urinary output. PFSH Past Medical History Hx Anticoagulant Therapy: Yes Blood Disorders: No Heart Rhythm Problems: Yes (AFIB) Cancer: No Cardiovascular Problems: Yes High Cholesterol: Yes Chest Pain: Yes Congestive Heart Failure: Yes (BNP 221 ON ADMISSION) Cerebrovascular Accident: Yes Diabetes: Yes Patient Takes Glucophage: No Diminished Hearing: No Genitourinary: No Hypertension: Yes Immune Disorder: No Implanted Vascular Access Dvce: Yes Musculoskeletal: No Neurologic: Yes (HX CVA 2012) Psychiatric: No Reproductive: No Respiratory: Yes (BRONCHITIS ON ANTIBIOTICS) Myocardial Infarction: Yes (2008 ) Thyroid Disease: No Past Surgical History Appendectomy: Yes Body Medical Devices: STENTS Coronary Artery Bypass Graft: Yes (STENTS X5) Other Surgery: Yes (A-FIB ABLATION) Social History Alcohol Use: No Tobacco Use: No Substance Use: No Allergies-Medications (Allergen,Severity, Reaction): Coded Allergies: No Known Allergies (Unverified , 11/18/16) Reported Meds & Prescriptions Reported Meds & Active Scripts Active Isosorbide Dinitrate 10 Mg Tab 10 Mg PO TID Aspirin EC (Aspirin) 81 Mg Tabdr 81 Mg PO DAILY Guaifenesin AC Liq (Guaifenesin-Codeine Liq) 100-10 Mg/5 Ml Syrp 5 Ml PO Q6H PRN Losartan (Losartan Potassium) 25 Mg Tab 25 Mg PO DAILY Furosemide 40 Mg Tab 40 Mg PO BID Sotalol (Sotalol HCl) 80 Mg Tab 80 Mg PO BID Crestor (Rosuvastatin Calcium) 20 Mg Tab 20 Mg PO DAILY Novolog Mix 70-30 Inj (Insulin Aspart Prota 70%/Aspart 30%) 1,000 Unit/10 Ml Vial 15 Units SQ BID 30 Days Levemir Inj (Insulin Detemir) 1,000 unit/ 10 ML Vial 30 Units SQ BID 30 Days Do not mix with any other Insulin. Reported Gabapentin 300 Mg Cap 300 Mg PO BID Warfarin 6 Mg Tab 6 Mg PO DAILY Review of Systems Except as stated in HPI: all other systems reviewed are Neg General / Constitutional: No: Fever, Chills Eyes: No: Drainage, Redness HENT: No: Headaches Cardiovascular: No: Chest Pain or Discomfort Respiratory: Positive: Shortness of Breath Gastrointestinal: Positive: Nausea, Diarrhea, Abdominal Pain, Loss of Appetite , No: Vomiting Genitourinary: No: Urgency, Frequency, Dysuria, Decreased Urinary Output Physical Exam Narrative GENERAL: Healthy-appearing man in no acute distress. SKIN: Warm and dry. HEAD: Atraumatic. Normocephalic. EYES: Pupils equal and round. Extraocular movements are intact. ENT: No nasal bleeding or discharge. Mucous membranes pink and moist. NECK: Trachea midline. Neck is supple. CARDIOVASCULAR: Regular rate and rhythm. Heart sounds are normal. RESPIRATORY: No accessory muscle use. Lungs are clear with full and GASTROINTESTINAL: Abdomen soft. Mid abdominal tenderness with no guarding or rebound. Nondistended. Bowel sounds present. MUSCULOSKELETAL: No obvious deformities. No edema. NEUROLOGICAL: Awake and alert. No obvious cranial nerve deficits. Motor grossly within normal limits. Normal speech. PSYCHIATRIC: Appropriate mood and affect; insight and judgment normal. Data Data Last Documented VS Vital Signs Date Time Temp Pulse Resp B/P Pulse Ox O2 Delivery O2 Flow Rate FiO2 12/01/16 21:00 67 18 149/90 99 Room Air 12/01/16 19:53 97.3 Orders Basic Metabolic Panel (Bmp) (12/01/16 20:38) Complete Blood Count With Diff (12/01/16 20:38) Prothrombin Time / Inr (Pt) (12/01/16 20:38) Act Partial Throm Time (Ptt) (12/01/16 20:38) Type And Screen (12/01/16 20:38) Ecg Monitoring (12/01/16 20:38) Iv Access Insert/Monitor (12/01/16 20:38) Orthostatic Vital Signs (12/01/16 20:38) Oximetry (12/01/16 20:38) Ondansetron Inj (Zofran Inj) (12/01/16 20:45) Sodium Chlor 0.9% 1000 Ml Inj (Ns 1000 M (12/01/16 20:38) Sodium Chloride 0.9% Flush (Ns Flush) (12/01/16 20:45) Octreotide Inj (Sandostatin Inj) (12/01/16 20:45) Pantoprazole Inj (Protonix Inj) (12/01/16 20:45) Pantoprazole Inj (Protonix Inj) (12/01/16 20:45) Hydromorphone Pf Inj (Dilaudid Pf Inj) (12/01/16 20:45) Abdomen, Flat & Upright (12/01/16 22:18) Labs Laboratory Tests Test 12/01/16 20:56 White Blood Count 8.9 TH/MM3 Red Blood Count 3.50 MIL/MM3 Hemoglobin 11.0 GM/DL Hematocrit 33.0 % Mean Corpuscular Volume 94.2 FL Mean Corpuscular Hemoglobin 31.4 PG Mean Corpuscular Hemoglobin 33.3 % Concent Red Cell Distribution Width 19.3 % Platelet Count 158 TH/MM3 Mean Platelet Volume 9.4 FL Neutrophils (%) (Auto) 33.0 % Lymphocytes (%) (Auto) 56.1 % Monocytes (%) (Auto) 8.2 % Eosinophils (%) (Auto) 1.2 % Basophils (%) (Auto) 1.5 % Neutrophils # (Auto) 2.9 TH/MM3 Lymphocytes # (Auto) 5.0 TH/MM3 Monocytes # (Auto) 0.7 TH/MM3 Eosinophils # (Auto) 0.1 TH/MM3 Basophils # (Auto) 0.1 TH/MM3 CBC Comment DIFF FINAL Differential Comment Prothrombin Time 33.2 SEC Prothromb Time International 2.9 RATIO Ratio Activated Partial 39.2 SEC Thromboplast Time Sodium Level 137 MEQ/L Potassium Level 4.2 MEQ/L Chloride Level 99 MEQ/L Carbon Dioxide Level 30.2 MEQ/L Anion Gap 8 MEQ/L Blood Urea Nitrogen 27 MG/DL Creatinine 1.84 MG/DL Estimat Glomerular Filtration 37 ML/MIN Rate Random Glucose 320 MG/DL Calcium Level 9.4 MG/DL Blood Type A POSITIVE Antibody Screen NEGATIVE Blood Bank Comment MDM Medical Decision Making Medical Screen Exam Complete: Yes Emergency Medical Condition: Yes Differential Diagnosis Differential diagnosis of abdominal pain includes but is not limited to gastritis, pancreatitis, hepatitis, gastroenteritis, gallbladder disease, constipation, urinary retention, UTI, peptic ulcer disease, diverticulitis or appendicitis Narrative Course Patient presents with mid abdominal pain associated with nausea and loose stools. Stools are black. He has been taking Pepto-Bismol. CBC & BMP Diagram 12/01/16 20:56 INR is 2.9. These results are baseline for this patient. Last Impressions Abdomen X-Ray 12/01/16 [id number] Signed Impressions: Service Date/Time: Thursday, December 01, 2016 22:44 - CONCLUSION: 1. No evidence of obstruction. Francisco Caba MD Plain films were independently viewed by me. [facility] Point of Care Internal Pos. & Neg. Controls: Passed Fecal Specimen Occult Blood: Negative Diagnosis Primary Impression: Abdominal pain Qualified Code: R10.84 - Generalized abdominal pain Additional Impression: Diarrhea Qualified Code: R19.7 - Diarrhea, unspecified type Patient Instructions: Abdominal Pain (ED), Acute Diarrhea (ED), General Instructions Disposition: 01 DISCHARGE HOME Condition: Stable Lakesha Mittal MD Dec 01, 2016 21:13
[2016-12-01 21:15] LABS: APTT (PATIENT) 39.2 SEC (24.3-30.1); INTERNATIONAL NORMALIZED RATIO 2.9 RATIO; PROTHROMBIN TIME - PATIENT 33.2 SEC (9.8-11.6)
[2016-12-01 22:13] LABS: BICARBONATE 30.2 MEQ/L (21.0-32.0); POTASSIUM 4.2 MEQ/L (3.5-5.1)
--- NOTE | 2016-12-01 23:16 | RADRPT ---
EXAM DATE/TIME: 12/01/2016 22:44 [facility] COMPARISON: No previous studies available for comparison. INDICATIONS : Abdominal pain and diarrhea for the past three days. MEDICAL HISTORY : None. SURGICAL HISTORY : Appendectomy. ENCOUNTER: Initial ACUITY: 3 days PAIN SCORE: 5/10 LOCATION: Bilateral abdomen. FINDINGS: Supine and upright views of the abdomen were performed. The abdominal bowel gas pattern is normal. No air fluid levels are seen. No abnormal masses, calcifications, or organomegaly is seen. The visu alized lower lungs are clear. No evidence of free intraperitoneal gas. The osseous structures are u nremarkable. Splenic artery calcification is present CONCLUSION: 1. No evidence of obstruction. Francisco Caba MD on December 01, 2016 at 23:14 Board Certified Radiologist. This report was verified electronically.
[2016-12-01 23:49] VITALS: BP 148/90
== END 2016-12-02 00:02 | disposition home or self-care (01) ==
LOC: NEPC 19:51
DX: R10.84 Generalized abdominal pain (principal); R19.7 Diarrhea, unspecified; R11.0 Nausea; I48.91 Unspecified atrial fibrillation; E78.00 Pure hypercholesterolemia, unspecified; E11.9 Type 2 diabetes mellitus without complications; I10 Essential (primary) hypertension; Z79.4 Long term (current) use of insulin; Z79.01 Long term (current) use of anticoagulants; Z86.69 Personal history of other diseases of the nervous system and sense organs; Z86.79 Personal history of other diseases of the circulatory system; Z87.09 Personal history of other diseases of the respiratory system
CPT/HCPCS: 74020; 80048; 85025; 85610; 85730; 86850; 86900; 86901; 96365; 96372; 96375; 99284; C9113; J1170; J2405; J7030